=== PATIENT | male | born 1955 | race Caucasian/White ===

== ENCOUNTER 2020-09-22 11:10 | Outpatient (REF) | payer OTHER, SELFPAY ==
--- NOTE | ~2020-09-22 | XR_ITS ---
EXAMINATION: XR KNEE, RIGHT CLINICAL INFORMATION: Pain in right knee COMPARISON: None TECHNIQUE: Four views of the right knee. This includes AP upright view. FINDINGS: No fracture or subluxation. Moderate narrowing of the medial and patellofemoral compartments. Tricompartmental marginal osteophytes. Small joint effusion. Scattered vascular calcifications. XR/XR knee RT 4V IMPRESSION: Moderate tricompartmental degenerative change. Small joint effusion.
== END 2020-09-22 11:11 | disposition home or self-care (01) ==
LOC: HO.XRAY 11:10
PROVIDERS: PCP Internal Medicine Geriatric Medicine; Visit Provider Internal Medicine Geriatric Medicine
DX: M25.561 Pain in right knee (principal)
CPT/HCPCS: 73564

== ENCOUNTER → 2021-04-20 13:44 | Outpatient (BNVA) | payer OTHER, SELFPAY | PROVIDERS: PCP Internal Medicine Geriatric Medicine; Referring Provider Internal Medicine Geriatric Medicine; Visit Provider Internal Medicine | DX: R00.2 Palpitations (principal); I10 Essential (primary) hypertension; E11.8 Type 2 diabetes mellitus with unspecified complications | CPT/HCPCS: 93005; 99202 ==

== ENCOUNTER → 2021-05-22 13:07 | Outpatient (REF) | payer OTHER, SELFPAY ==
--- NOTE | 2021-05-22 13:16 | HM_ITS ---
Conclusion: 1. Patient was monitored for total of 4 days 2. Baseline rhythm is normal sinus rhythm with average heart of 84 beats per minute. 3. No significant pauses or bradycardia noted 4. Five short runs of SVT noted the longest lasting 11 beats with aberrancy. 5. Total of 1874 PACs accounting for 0.38% of PACs accounting for occasional PACs 6. No patient reported events MTDD
== END ==
LOC: HO.CARD 13:07
PROVIDERS: PCP Internal Medicine Geriatric Medicine; Visit Provider Internal Medicine
DX: R00.2 Palpitations (principal)
CPT/HCPCS: 93242

== ENCOUNTER → 2021-06-23 12:52 | Outpatient (BNVA) | payer OTHER, SELFPAY | PROVIDERS: PCP Internal Medicine Geriatric Medicine; Referring Provider Internal Medicine Geriatric Medicine; Visit Provider Nurse Practitioner Family | DX: R00.2 Palpitations (principal); I47.1 Supraventricular tachycardia; I10 Essential (primary) hypertension | CPT/HCPCS: 99212 ==

== ENCOUNTER 2021-09-10 12:03 | Outpatient (REF) | payer OTHER, SELFPAY ==
--- NOTE | ~2021-09-10 | CT_ITS ---
EXAMINATION: CT CHEST SCREENING CLINICAL INFORMATION: Nicotine dependence. Current smoker. Greater than 14-[id number]-hcds history. COMPARISON: Previous chest CT January 2020. TECHNIQUE: Multidetector volumetric CT imaging of the chest is performed without contrast using low dose technique. Additional 2D coronal and sagittal reformatted images and axial 3D maximum intensity projection (MIP) images are generated on the CT workstation. This CT examination was performed using dose optimization techniques as appropriate, variously including the following: *Automated exposure control. *Adjustment of mA and/or kV according to patient size (this includes techniques or standardized protocols for targeted exams where dose is matched to indication/reason for exam; i.e. extremities or head). *Use of iterative reconstruction technique. DLP: 58 mGy-cm FINDINGS: LUNGS: There is evidence of emphysema. There are increased interstitial markings and areas of increased attenuation again suggestive of interstitial lung disease. There are increased markings seen in the medial right lower lobe adjacent to bony osteophyte that are stable. More inferior to this is an area of increased ground-glass attenuation measuring approximately 1 x 2 cm, for example axial image 346 series 5, that is stable. There are smaller scattered areas of increased ground-glass attenuation particularly in the left upper and lower lobes that appear stable. There are new peripheral or subpleural areas of increased ground-glass attenuation in the right lower lobe adjacent to the diaphragm, largest measuring 1.5 cm, for example axial image 369 series 5. There are several solid pulmonary nodules that are stable; largest measures 3 mm in the left lower lobe adjacent to the fissure, axial image 263 series 3. No endobronchial or endotracheal lesion is seen. MEDIASTINUM: There is stable mediastinal lymphadenopathy. Larger lymph nodes are upper normal in size but appear unchanged. The heart does not appear enlarged. There is no coronary artery calcification. The thoracic aorta is normal in caliber. PLEURA: There is no pleural effusion. No pleural mass or thickening. AXILLA: No lymphadenopathy. UPPER ABDOMEN: Unremarkable. OSSEOUS STRUCTURES: There are degenerative changes of the spine. CT/CT lung screening IMPRESSION: Emphysema and interstitial disease. Scattered areas of ground-glass attenuation with new areas in the right lower lobe. Dominant peripheral or subpleural ground-glass attenuation area in the medial right lower lobe appears unchanged. ASSESSMENT: Lung-RADS category 3: Probably Benign. RECOMMENDATION: 6 month low-dose chest CT follow-up recommended.
== END 2021-09-10 12:04 | disposition home or self-care (01) ==
LOC: HO.CT 12:03
PROVIDERS: PCP Internal Medicine Geriatric Medicine; Visit Provider Physician Assistant Medical
DX: Z12.2 Encounter for screening for malignant neoplasm of respiratory organs (principal); Z87.891 Personal history of nicotine dependence
CPT/HCPCS: 71271

== ENCOUNTER → 2021-10-27 13:23 | Outpatient (BNVA) | payer OTHER, SELFPAY | PROVIDERS: PCP Internal Medicine Geriatric Medicine; Referring Provider Internal Medicine Geriatric Medicine; Visit Provider Nurse Practitioner Family | DX: I47.1 Supraventricular tachycardia (principal); I10 Essential (primary) hypertension; R00.2 Palpitations | CPT/HCPCS: 99212 ==

== ENCOUNTER → 2022-04-28 11:27 | Outpatient (BNVA) | payer OTHER, SELFPAY | PROVIDERS: PCP Internal Medicine Geriatric Medicine; Referring Provider Internal Medicine Geriatric Medicine; Visit Provider Internal Medicine | DX: R00.2 Palpitations (principal); I10 Essential (primary) hypertension | CPT/HCPCS: 93005; 99212 ==

== ENCOUNTER → 2022-05-10 13:29 | Outpatient (REF) | payer OTHER, SELFPAY ==
--- NOTE | 2022-05-10 13:34 | CA_ITS ---
Transthoracic Echocardiogram Patient (Last, First, Middle): Iftikhar Wen, Gender: Male Date of : 1955 Age: 66 Procedure Date: 05/10/2022 Procedure Type: Transthoracic Echocardiogram Location: OP Height: 175.26 cm Weight: 99.79 kg BSA: 2.15 m2 Heart Rate: bpm BP: 120 / 82 mmHg Scouts: MINA Referring MD: Isaias Perez MD City Detective: Shabbir Shaw MD Symptoms: I47.1 - Supraventricular tachycardia Study Quality: Technically Difficult/contrast ECG Rhythm: Sinus Conclusions: - 1. Mildly reduced LV systolic function with LVEF of 45-50% with impaired relaxation filling pattern with wall motion abnormality in RCA territory 2. Normal cardiac valvular Doppler 3. Normal RV systolic pressure 4. No gross pericardial effusion Findings Procedure Information Contrast agent, definity, is being given per protocol without apparent complications. Left Ventricle Normal left ventricular cavity size. There is normal left ventricular wall thickness. The left ventricular systolic function is mildly decreased. The visually estimated ejection fraction is between 45-50%. Spectral Doppler is indicative of an impaired relaxation filling pattern. E/E prime ratio is between 8 and 15 consistent with indeterminate filling pressures. Wall Motion Rest Echo Findings The inferoseptal wall, the basal inferior, and mid inferior segments are hypokinetic. All other scored wall segments showed normal motion. Right Ventricle The right ventricle was not well visualized. Atria The left atrium is normal in size. Interatrial shunt cannot be excluded. The right atrium is normal in size. Aortic Valve Normal aortic valve structure and function. There is no aortic valve stenosis. There is no aortic valve regurgitation. Mitral Valve Normal mitral valve structure and function. There is trace mitral valve regurgitation. There is no mitral valve stenosis. Pulmonic Valve The pulmonic valve was not well visualized. Tricuspid Valve Likely normal tricuspid valve structure and function. There is trace tricuspid valve regurgitation. The right ventricular systolic pressure is normal. The right ventricular systolic pressure is 26 mmHg. Normal right atrial pressure. There is no evidence of pulmonary hypertension. Great Vessels All visible segments of the aorta are normal in size. The pulmonary artery was not well visualized. Venous The inferior vena cava is normal in size and collapses greater than 50% with inspiration. Pericardium/Pleural There is no evidence of pericardial effusion. Prior Study Comparison No prior study available for comparison. Measurements 2D Linear Measurements IVSd: 1.03 0.6-0.9/0.6-1.0 cm LVIDd: 4.58 3.9-5.3/4.2-5.9 cm LVIDd Index: 2.13 2.4-3.2/2.2-3.1 cm/m2 LVIDs: 3.14 2.0-3.6 cm LVPWd: 1.05 0.7-1.1 cm LA Diam: 2.50 2.7-3.8/3.0-4.0 cm LAIDs Index: 1.16 1.5-2.3 cm/m2 LV Mass: 207.31 67-162/88-224 g LV Mass Index: 96.42 43-95/49-115 g/m2 LVOT Diam: 2.10 3.0+(-)1.3 cm 2D Systolic Function EF 4C: 45.40 >55% EF 2C: 49.20 >55% EF BiP: 45.90 >55% Mitral Valve MV Pk E: 0.79 MV PK A: 0.83 MV Decel Time: 174.00 E/A: 1.00 E'Lateral: 8.16 E'Medial: 6.96 E/E' Med: 11.40 E/E' Lat: 9.70 PHT: 51.00 MVA PHT: 4.31 Decel Amador: 4.55 Aortic Valve AoV Pk Deandre: 1.32 AoV Mn Deandre: 0.93 AoV VTI: 0.29 AoV Pk Grad: 7.00 Aov Mn Grad: 4.00 ARJUN Cont.VTI: 2.72 LVOT LVOT Pk Deandre: 0.98 LVOT Mn Deandre: 0.67 LVOT VTI: 0.23 LVOT Pk Grad: 4.00 LVOT Mn Grad: 2.00 LVOT Diam: 2.10 LVOT Area: 3.46 Diastolic Function MV Pk E: 0.79 MV Pk A: 0.83 E/A: 1.00 E'Medial: 6.96 E/E' Med: 11.40 E' Laterial: 8.16 E/E' Lat: 9.70 Right Ventricle TAPSE (mm): 20.70 TVS' Deandre: 11.50 Tricuspid Valve TR Pk Deandre: 2.42 TR Pk Grad: 23.00 RA Press: 3.00 RVSP: 26.00 Great Vessels Aorta Sinus of Valsalva: 3.17 2.0-3.[address] [place]: 2.26 1.7-3.4 cm Ao Asc: 3.30 2.1-3.4 cm Updated in Other Vendor System with Status of Final Shabbir Shaw MD electronically signed on 05/11/2022 12:27:38 PM with status of Final
== END ==
LOC: HO.CARD 13:29
PROVIDERS: Visit Provider Internal Medicine
DX: I47.1 Supraventricular tachycardia (principal)
CPT/HCPCS: 93306; Q9957

== ENCOUNTER → 2022-05-27 08:37 | Outpatient (REF) | payer OTHER, SELFPAY ==
--- NOTE | ~2022-05-27 | NM_ITS ---
Exercise Myocardial perfusion study Indication: CAD to evaluate for myocardial ischemia Technique: The patient was brought in for an exercise perfusion study on 05/27/2022. Patient performed exercise as per Edwin protocol and was injected 28 mCi of sestamibi was given intravenously one target HR was achieved. Images were obtained using the SPECT gamma camera interlaced with the gating device. Images were obtained in supine position. Resting perfusion study was performed on 05/27/2022. Patient was administered 8.5 mCi of sestamibi intravenously at rest. Images were then obtained in supine position. Images obtained with and without CT attenuation. Total DLP 78 mGy-cm. Images were processed with the software and compared side to side in short axis, horizontal long axis and vertical long axis views. Findings: The stress perfusion study showed both attenuated as well as non attenuated corrected images show normal uptake of radiotracer in all segments of LV myocardium.. The gated study shows normal LV systolic function with calculated LVEF of 57%. LV cavity is normal in size. The gated study shows normal systolic wall thickening and contraction of all segments. There is no transient ischemic dilation. Resting study shows non attenuated images show normal uptake of radiotracer in all segments of LV myocardium. Gating at rest reveals normal systolic wall motion with ejection fraction at 59%. The findings are consistent with normal myocardial perfusion. NM/NM syd perf SPECT rest & str Impression: 1. Normal myocardial perfusion 2. Gated LVEF is 57% 3. Transient ischemic dilatation not present Stress EKG is negative for ischemia
--- NOTE | 2022-05-27 08:42 | CA_ITS ---
Acquisition Time: 2022-05-27 09:49:41 Total Exercise Time: 00:05:01 Test Indications: ABN ECHO Medications: SEE CHART Protocol: MONTSERRAT Max HR: 157 BPM 101% of Pred: 155 BPM Max BP: 165/072 mmHG Max Work Load: 4.6 METS Exercise stress test with exercise 5 min 1 sec of Montserrat stage 1 (stage held due to reported inability to walk faster), achieving 101% MPHR, with moderate shortness of breath and request to stop, without chest discomfort, with isolated PACs, with normotensive response to exercise, without EKG changes meeting criteria for ischemia. In recovery his breathing normalized. Nuclear images pending. Test reviewed with Dr Guido. Referred By: Isaias Perez Overread By: INOCENTE GARCIA
== END ==
LOC: HO.CARD 08:37
PROVIDERS: Visit Provider Internal Medicine
DX: I25.10 Atherosclerotic heart disease of native coronary artery without angina pectoris (principal)
CPT/HCPCS: 78452; 93017; A9500; J0280; J2785

== ENCOUNTER → 2022-08-25 14:26 | Outpatient (BNVA) | payer OTHER, SELFPAY | PROVIDERS: PCP Internal Medicine Geriatric Medicine; Referring Provider Internal Medicine Geriatric Medicine; Visit Provider Internal Medicine | DX: I25.10 Atherosclerotic heart disease of native coronary artery without angina pectoris (principal); I10 Essential (primary) hypertension; E11.8 Type 2 diabetes mellitus with unspecified complications; F17.210 Nicotine dependence, cigarettes, uncomplicated | CPT/HCPCS: 99212 ==

== ENCOUNTER 2023-06-07 12:56 | Outpatient (RCR) | payer OTHER, SELFPAY | END 2023-06-07 15:00 | disposition home or self-care (01) | LOC: HO.WCC 12:56 | PROVIDERS: PCP Internal Medicine Geriatric Medicine; Visit Provider Physician Assistant | DX: Z09 Encounter for follow-up examination after completed treatment for conditions other than malignant neoplasm (principal) ==

== ENCOUNTER 2023-08-22 10:42 | Outpatient (REF) | payer OTHER, SELFPAY ==
[2023-08-22 11:35] LABS: MANUAL DIFF FLAG NO
[2023-08-22 11:44] LABS: Basophils Absolute Auto 0.1 X10*3/uL (0.0-0.2); Basophils Percent Auto 1.2 % (0-2); Eosinophils Absolute Auto 0.3 X10*3/uL (0.0-0.4); Eosinophils Percent Auto 5.7 % (0-4); Hematocrit 40.2 % (42.0-52.0); Hemoglobin 13.2 g/dl (14.0-18.0); Imm Gran Abs Auto 0.02 X10*3/uL (0.00-0.03); Imm Gran Pct Auto 0.4 % (0.0-0.4); Lymphocytes Absolute Auto 1.9 X10*3/uL (1.2-4.9); Lymphocytes Percent Auto 33.2 % (20-40); Mean Corpuscular HGB Conc 32.8 g/dl (31.0-36.0); Mean Corpuscular Hemoglobin 30.1 pg (27.0-33.0); Mean Corpuscular Volume 91.6 fL (80.0-98.0); Mean Platelet Volume 10.7 fL (9.4-12.4); Monocytes Absolute Auto 0.6 X10*3/uL (0.1-1.2); Monocytes Percent Auto 9.7 % (2-11); Neutrophils Absolute Auto 2.8 x10*3/uL (2.0-8.3); Neutrophils Percent Auto 49.8 % (45-73); Platelet Count 201 X10*3/uL (160-400); Red Blood Count 4.39 X10*6/uL (4.60-5.80); White Blood Count 5.7 X10*3/uL (4.8-10.8)
[2023-08-22 12:08] LABS: Alanine Aminotransferase 15 U/L (0-40); Albumin Level 4.5 g/dL (3.5-5.0); Alkaline Phosphatase 59 U/L (39-117); Anion Gap 16 (12-20); Aspartate Amino Transferase 35 U/L (5-37); Bilirubin Total 0.6 mg/dL (0.0-1.0); Blood Urea Nitrogen 19 mg/dL (9-16); Calcium 9.4 mg/dL (8.4-10.2); Carbon Dioxide 25 mmol/L (22-29); Chloride 100 mmol/L (96-108); Cholesterol 100 mg/dL (<200); Estimated Glomerular Filt Rate 50; Glucose Random 121 mg/dL (60-115); HDL Cholesterol 33 mg/dL (>40); LDL Cholesterol Calculated 47 mg/dL (<100); Sodium 137 mmol/L (135-145); Total Protein 7.5 g/dL (6.5-8.0); Triglycerides 104 mg/dL (<150)
[2023-08-22 12:13] LABS: Creatinine Urine 169.45 mg/dL; Microalbum/Creatinine Ratio Ur 8.8 ug/mg cr (<30)
[2023-08-22 12:22] LABS: Prostate Specific Antigen 0.51 ng/mL (<0.05-4.0); ~HepC Num1 0.08 S/CO (0.00-0.79); ~Hepatitis C Antibody Nonreactive (Nonreactive)
== END 2023-08-22 10:43 | disposition home or self-care (01) ==
LOC: HO.HHCL 10:42
PROVIDERS: Visit Provider Internal Medicine Geriatric Medicine
DX: E11.9 Type 2 diabetes mellitus without complications (principal); E78.00 Pure hypercholesterolemia, unspecified; L21.0 Seborrhea capitis; Z11.59 Encounter for screening for other viral diseases; Z53.20 Procedure and treatment not carried out because of patient's decision for unspecified reasons; Z12.5 Encounter for screening for malignant neoplasm of prostate
CPT/HCPCS: 36415; 80053; 80061; 82043; 82570; 84153; 85025; 86803

== ENCOUNTER 2023-09-19 11:32 | Outpatient (REF) | payer OTHER, SELFPAY ==
[2023-09-19 13:54] LABS: Anion Gap 12 (12-20); Blood Urea Nitrogen 13 mg/dL (9-16); Calcium 9.5 mg/dL (8.4-10.2); Carbon Dioxide 29 mmol/L (22-29); Chloride 104 mmol/L (96-108); Estimated Glomerular Filt Rate > 60; Glucose Random 130 mg/dL (60-115); Potassium 4.3 mmol/L (3.3-5.1); Sodium 141 mmol/L (135-145)
== END 2023-09-19 11:33 | disposition home or self-care (01) ==
LOC: HO.HHCL 11:32
PROVIDERS: Visit Provider Internal Medicine Geriatric Medicine
DX: R79.89 Other specified abnormal findings of blood chemistry (principal)
CPT/HCPCS: 36415; 80048

== ENCOUNTER 2023-11-14 13:48 | Outpatient (REF) | payer OTHER, SELFPAY ==
--- NOTE | ~2023-11-14 | CT_ITS ---
EXAMINATION: CT CHEST SCREENING CLINICAL INFORMATION: Nicotine dependence, cigarettes, uncomplicated. The patient is a current smoker with a 46 pack-year history of smoking. COMPARISON: CT chest 09/10/2021. X-ray chest 04/11/2017. TECHNIQUE: Multidetector volumetric CT imaging of the chest is performed on a Siemens SOMATOM Definition scanner without contrast using low dose technique. Additional 2D coronal and sagittal reformatted images and axial 3D maximum intensity projection (MIP) images are generated on the CT workstation. This CT examination was performed using dose optimization techniques as appropriate, variously including the following: *Automated exposure control. *Adjustment of mA and/or kV according to patient size (this includes techniques or standardized protocols for targeted exams where dose is matched to indication/reason for exam; i.e. extremities or head). *Use of iterative reconstruction technique. DLP: 54 mGy-cm FINDINGS: LUNGS: Emphysematous changes are seen. Bronchial wall thickening is present. Ground-glass changes adjacent to the spine in the right lower lobe persists. There has been some resolution of some larger previously seen ground-glass nodules. For example, on prior 5:64, a 1.7-1.5 cm ground-glass nodule were present which are no longer seen. A 1.9 x 0.8 cm ground-glass density in the left lower lobe is unchanged (5:299 compare prior 5:280). No new or suspicious lung mass is seen. MEDIASTINUM: Prominent mildly enlarged mediastinal lymph nodes are unchanged. CORONARY ARTERY CALCIFICATION: None visualized on this study. PLEURA: There is no pleural effusion. No pleural mass or thickening. AXILLA: No lymphadenopathy. UPPER ABDOMEN: Unremarkable. OSSEOUS STRUCTURES: Degenerative changes are present in the spine. CT/CT lung screening IMPRESSION: No concerning pulmonary nodule is seen. There has been some resolution of ground-glass disease seen previously. ASSESSMENT: Lung-RADS category 2: Benign. RECOMMENDATION: Routine annual low-dose CT screening in 12 months.
== END 2023-11-14 13:49 | disposition home or self-care (01) ==
LOC: HO.CT 13:48
PROVIDERS: PCP Internal Medicine Geriatric Medicine; Visit Provider Nurse Practitioner Family
DX: Z12.2 Encounter for screening for malignant neoplasm of respiratory organs (principal); F17.210 Nicotine dependence, cigarettes, uncomplicated
CPT/HCPCS: 71271

== ENCOUNTER 2024-09-12 10:47 | Outpatient (REF) | payer OTHER, SELFPAY ==
--- NOTE | ~2024-09-12 | XR_ITS ---
EXAMINATION: XR CHEST 2 VIEWS HISTORY: sinus tachycardia, ?cardiomegaly COMPARISON: Comparison is made with the prior examination dated 04/11/2017. FINDINGS: PA and lateral views of the chest are submitted. The lungs are expanded and clear. There is no pleural effusion, pneumothorax, or pulmonary vascular congestion. The heart is normal in size. There is degenerative disc disease of the spine. XR/XR chest 2V IMPRESSION: No acute cardiopulmonary abnormality. Electronically signed by: Iron Cook MD 09/12/2024 11:02 AM MARIELLA
--- OUTSIDE RECORDS SUMMARY | 2024-09-12 13:24 | XMS_ITS | Encounter Summary ---
Author Organization [facility] Address [address] [place] [address] [address] [place] [address] Care Team Providers Care Master Sonar Technician Name Role Phone Name, Nick BOWENS Primary Care Provider [phone] Reason for Visit * Reason Comments Med Refill Encounter Details Date Type Department Care Team (Late st Contact Info) Description 04/15/2023 Refill [facility] [address] [place] [address] [phone] Edwin Ocasio AGNP Type 2 diabetes mellitus without complication, without long-term current use of insulin (CMS/HCC) Social History Tobacco Use Types Packs/Day Years Used Date Smoking Tobacco: Every Day Cigarettes Smokeless Tobacco: Never Depression Answer Date Recorded Patient Health Questionnaire-2 Score 0 07/21/2022 Sex and Gender Information Value Date Recorded Sex Assigned at Male 05/17/2022 10:18 AM EDT Legal Sex Male 10:18 AM EDT Gender Identity Male 05/17/2022 10:18 AM EDT Sexual Orientation Straight 05/17/2022 10 :18 AM EDT documented as of this encounter Plan of Treatment Upcoming Encounters Date Type Department Care Team (Late st Contact Info) Description 12/14/2024 10:00 AM EDT Office Visit [facility] [address] [place] [address] [id number] Name, MD Nick [address] [place] [phone] documented as of this encounter Visit Diagnoses Diagnosis Type 2 diabetes mellitus without complication, without long-term current use of insulin (CMS/HCC) documented in this encounter Care Teams Master Sonar Technician Relationship Specialty Start Date End Date Name, MD Nick [address] [place] [id number] PCP - General Family Medicine 10/14/15 documented as of this encounter
--- OUTSIDE RECORDS SUMMARY | 2024-09-12 13:24 | XMS_ITS | Clinical Summary ---
Author Organization [employer] Address [address] [facility] [address] [place] [address] Care Team Providers Care Research Recruiter Name Role Phone Name, Nick BOWENS Primary Care Provider [phone] Allergies Active Allergy Reactions Criticality Noted Date Comments Aspirin 08/12/2015 Citric Acid 08/12/2015 Haloperidol 08/12/2015 Sodium Bicarbonate 08/12/2015 Medications zolpidem CR (Ambien CR) 12.5 MG ER tablet Take 1 tablet by mouth if needed at bedtime. Active OLANZapine (ZyPREXA) 20 MG tablet Take 1 tablet by mouth at bedtime. Active prazosin (Minipress) 2 MG capsule Take 1 capsule by mouth at bed time. Take with 5 mg capsule (TDD = 7 mg) Active prazosin (Minipress) 5 MG capsule Take 1 capsule by mouth at bedtime. Take with 2 mg capsule (TDD = 7 mg). Active sertraline (Zoloft) 100 MG tablet Take 2 tablets by mouth in the morning. 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 4 each 5 024 Active ketoconazole (NIZOral) 2 % shampoo APPLY TOPICALLY TO AFFECTED AREA(S) TWICE A WEEK 120 mL 2 024 Active acetaminophen (Tylenol Extra Strength) 500 MG tablet Take 1 tablet (500 mg) by mouth every 8 (eight) hours if needed for moderate pain. 90 tablet 11 024 2024 Active clotrimazole (Lotrimin) 1 % cream APPLY TO FEET AND TOES TWICE DAILY 60 g 2 024 Active atorvastatin (Lipitor) 40 MG tablet TAKE 1 TABLET BY MOUTH AT BEDTIME 90 tablet 1 024 Active omeprazole (PriLOSEC) [address] capsule TAKE 1 CAPSULE BY MOUTH EVERY EVENING 90 capsule 1 024 Active lisinopril 10 MG tablet TAKE 1 TABLET BY MOUTH EVERY MORNING 90 tablet 1 024 Active Aspirin Low Dose 81 MG EC tablet TAKE 1 TABLET BY MOUTH EVERY EVENING 90 tablet 1 024 Active senna (Senokot) 8.6 MG tabletIndicatio ns:Constipation , unspecified constipation type TAKE 2 TABLETS BY MOUTH EVERY DAY AT BEDTIME 180 tablet 1 024 Active metFORMIN (Glucophage) 850 MG tablet TAKE 1 TABLET BY MOUTH TWICE DAILY IN THE MORNING AND IN THE EVENING WITH FOOD 180 tablet 025 Active Trulicity 1.5 MG/0.5ML solution auto-injectorIn dications:Type 2 diabetes mellitus with other specified complication, unspecified whether retirement insulin use ([facility]) INJECT ONE PEN (=1.5MG) SUBCUTANEOUSLY ONCE A WEEK DIRECTED 2 mL 5 025 Active naproxen (Naprosyn) 500 MG tabletIndicatio ns:Type 2 diabetes mellitus without complication, without long-term current use of insulin ([facility]) TAKE 1 TABLET BY MOUTH TWICE DAILY IN THE MORNING AND IN THE EVENING WITH FOOD NEEDED FOR PAIN 60 tablet 1 025 Active Trulicity 1.5 MG/0.5ML solution pen-injectorInd ications:Type 2 diabetes mellitus with other specified complication, unspecified whether retirement insulin use ([facility]) INJECT ONE PEN (=1.5MG) SUBCUTANEOUSLY ONCE A WEEK DIRECTED 2 mL 5 024 2024 Discontinued naproxen (Naprosyn) 500 MG tabletIndicatio ns:Type 2 diabetes mellitus without complication, without long-term current use of insulin ([facility]) TAKE 1 TABLET BY MOUTH TWICE DAILY IN THE MORNING AND IN THE EVENING WITH FOOD NEEDED FOR PAIN 60 tablet 1 024 2024 Discontinued Active Problems Problem Noted Date Diagnosed Date History of psychosis 09/12/2024 Tobacco user 07/15/2022 Prostatism 12/20/2017 Chronic obstructive lung disease 04/08/2017 Type 2 diabetes mellitus 02/23/2016 Pure hypercholesterolemia 12/20/2011 Essential hypertension 12/20/2011 Depressive disorder 12/20/2011 Anxiety state 12/20/2011 Resolved Problems Problem Noted Date Diagnosed Date Resolved Date Occult blood in stools 07/15/202209/12 Encounters Date Type Department Care Team Description 09/12/2024 10:00 AM EST Office Visit [facility] [address] [place] [address] Nick Johnson MD Tachycardia (Primary Dx); Type 2 diabetes mellitus without complication, without long-term current use of insulin ([facility]) 09/12/2024 Refill [facility] [address], [place] [phone] Nick Johnson MD Type 2 diabetes mellitus without complication, without long-term current use of insulin ([facility]) 09/04/2024 Refill [facility] [address], [place] [phone] Nick Johnson MD Type 2 diabetes mellitus with other specified complication, 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 ([facility]) 08/31/2024 Patient Outreach [facility] [address], [place] [phone] Nick Johnson MD Pre-visit Planning (Pre-visit planning - LVM ) 07/31/2024 Refill [facility] [address], [place] [phone] Nick Johnson MD 07/10/2024 Refill [facility] [address], [place] [phone] Nick Johnson MD Constipation, unspecified constipation type from Last 3 Months Immunizations Name Administration Dates Next Due Hep B, adult 09/15/2007,08/03/2007 Influenza Injectable Quadriv alant Preservative Free IIV4 MDCK 06/25/2020 Influenza injectable quadriv alent IIV4 with preservative 07/21/2022,05/26/2018,04/08/2017,05/25,04/10/2015 Influenza injectable quadriv alent preservative free 08/19/2023,05/27/2021,04/06/2019 Influenza, IIV3, injectable 04/15/2014, 1 Influenza, Split (incl. sylvain fied surface antigen) 04/23/2013,07/04/2012 Pfizer Covid-19 Vaccine 12+ rebecca-sucrose (Pérez Cap) 12/04/2021 Pneumococcal Conjugate PCV 20 08/19/2023 Pneumococcal Polysaccharide PPSV23 04/07/2006 TD (adult), 2 Lf tetanus tox oid, preservative free, adsorbed 02/10/2006 Tdap 05/25/2016 Zoster, Recombinant 01/06/2022,10/30/2021 Social History Tobacco Use Types Packs/Day Years Used Date Smoking Tobacco: Former Cigarettes Q uit: 06/2023 Smokeless Tobacco: Current Tobacco Cessation:Ready to Q uit: Not Asked; Counseling Given: Not Answered Comments:vaping Alcohol Use Standard Drinks/Week Comments Never 0 (1 standard drink = 0.6 oz pur e alcohol) Depression Answer Date Recorded Patient Health Questionnaire-9 Score 8 09/12/2024 Patient Health Questionnaire-9 Score 8 09/12/2024 Last PHQ-9: Questionnaire Data Not on file 0 09/12/2024 Housing Stability Answer Date Recorded What is your housing situation today? I have al ponce 09/12/[address] you li ve. Do you have problems with any of the following? None of the above 09/12/2024 Food Insecurity Answer Date Recorded Within the past 12 months, y ou worried that your food would run out before you got money to buy more: Sometimes True 2024 Within the past 12 months,th e food you bought just didn't last and you didn't have enough money to get more: Often true 09/12/2024 Transportation Answer Date Recorded In the past 12 months, has l ack of transportation kept you from medical appts, meetings, work or from getting things needed for daily living? No 09/12/2024 Utilities Answer Date Recorded In the past 12 months, has t he electric, gas, oil or water company threatened to shut off services in your home? No 09/12/2024 Depression Answer Date Recorded Patient Health Questionnaire-2 Score 0 09/12/2024 Internet Access Answer Date Recorded Internet Access Q1 Yes 09/12/2024 Internet Access Q2 Not on file 09/12/2024 Sex and Gender Information Value Date Recorded Sex Assigned at Male 05/17/2022 10:18 AM EDT Legal Sex Male 10:18 AM EDT Gender Identity Male 05/17/2022 10:18 AM EDT Sexual Orientation Straight 05/17/2022 10 :18 AM EDT Last Filed Vital Signs Vital Sign Reading Time Taken Comments Blood Pressure 111/65 09/12/2024 10:10 AM EST Pulse 127 09/12/2024 10:10 AM EST Temperature 35.9 ??C (96.6 ??F) 09/12/2024 10:[address] Respiratory Rate 20 09/12/2024 10:10 AM EST Oxygen Saturation 97% 09/12/2024 10:10 AM EST Inhaled Oxygen Concentration - - Weight 85.7 kg (189 lb) 09/12/2024 10:10 AM EST Height 175.3 cm (5' 9 ) 09/12/2024 10:10 AM EST Body Mass Index 27.91 09/12/2024 10:10 AM EST Plan of Treatment Upcoming Encounters Date Type Department Care Team (Late st Contact Info) Description 12/14/2024 10:00 AM EDT Office Visit [facility] [address] [place] [address] Name, MD Nick [address] [place] [address] Health Maintenance Due Date Last Done Comments CT Colonography 1955 Colonoscopy 1955 FIT 1955 FOBT 1955 Sigmoidoscopy 1955 Eye Exam 1966 Hepatitis B Vaccines (3 of 3 - 19+ 3-dose series) 02/01/2008 09/15/2007, 08/03/2007 RSV Patients and Patients Aged 60 years or older (1 - Risk 60-74 years 1-dose series) 2016 COVID-19 Vaccine ( season) 2024 12/04/2021, 05/27/2021, 10/08/2020, Additional history exists Influenza Vaccine (#1) 2024 , 07/21/2022, 05/27/2021, Additional history exists Diabetes: Foot Exam 08/19/2024 08/19/2023, 08/19/2023, 08/19/2023, Additional history exists Diabetes: Urine Protein Screening 08/22/2024 08/22/2023, 09/02/2022, 12/07/2021 Lipid Panel 08/22/2024 08/22/2023, 08/18, 12/07/2021 Diabetes: Hemoglobin A1C 03/12/2025 025, 08/19/2023, 07/21/2022 Alcohol/Substance Use Screening 09/12/2025 09/12/2024 Depression Screening 09/12/2025 09/12/2024, 09/12/19 25 SDOH Screening 09/12/2025 09/12/2024 Tobacco Screening 09/12/2025 09/12/2024 DTaP/Tdap/Td Vaccines (2 - Td or Tdap) 05/25/2026 05/25/2016, 02/10/2006 Colorectal Cancer Screening 09/12/2026 FIT DNA/Cologuard 09/12/2026 09/12/2023 Zoster Vaccines Completed 01/06/2022, 10/30/2021 Pneumococcal Vaccine: 50+ Years Completed 08/19/2023, 04/07/2006 Hepatitis C Screening Completed 08/22/2023 HIB Vaccines Aged Out No longer eligi ble based on patient's age to complete this topic HPV Vaccines Aged Out No longer eligi ble based on patient's age to complete this topic Hepatitis A Vaccines Aged Out No long er eligible based on patient's age to complete this topic IPV Vaccines Aged Out No longer eligi ble based on patient's age to complete this topic Meningococcal Vaccine Aged Out No jocelynn jorge eligible based on patient's age to complete this topic RSV under 20 months Aged Out No longe r eligible based on patient's age to complete this topic Rotavirus Vaccines Aged Out No longer eligible based on patient's age to complete this topic Procedures Procedure Name Priority Date/Time Associated Diagnosis Comments XR CHEST 2 VIEWS Routine 09/12/2024 10:4 7 AM EST Tachycardia ECG 12-LEAD Routine 09/12/2024 10:36 AM EST Tachycardia POCT GLYCATED HEMOGLOBIN, TOTAL Routine 09/12/2024 10:12 AM EST Type 2 diabetes mellitus without complication, without long-term current use of insulin (CMS/HCC) POCT GLUCOSE Routine 09/12/2024 10:11 AM EST Type 2 diabetes mellitus without complication, without long-term current use of insulin (CMS/HCC) LAB COLOGUARD?? COLON CANCER SCREEN Routine 09/12/2023 4:00 PM EST Screen for colon cancer HEPATITIS C AB W/REFL TO HCV RNA, QN, PCR Routine 08/22/2023 10:46 AM EST Need for hepatitis C screening test ALBUMIN, RANDOM URINE W/CREATININE Routine 08/22/2023 10:46 AM EST Type 2 diabetes mellitus without complication, without long-term current use of insulin (CMS/HCC) Pure hypercholesterolemi a Colonoscopy refused Screening for prostate cancer Dandruff in adult LIPID PANEL, STANDARD Routine 08/22/2023 10:46 AM EST Type 2 diabetes mellitus without complication, without long-term current use of insulin (CMS/HCC) Pure hypercholesterolemi a Colonoscopy refused Screening for prostate cancer Dandruff in adult from Last 3 Months or Most Recently Relevant to Health Maintenance Results * XR Chest 2 Views (09/12/2024 10:47 AM EST) Anatomical Region Laterality Modality Chest Radiographic Mariann ging 09/12/2024 10:4 7 AM EST Narrative 09/12/2024 11:05 AM EST ?[facility] ?[address] ?[place] [address] ?XRay Report ? Signed ? Patient: Wen,Iftikhar ?MR#: [id number] ?? [id number] ? : 1955 ?Acct:[id number] ? Age/Sex: 68 / M ?ADM Date: 09/12/24 ? Loc: HO.HHCX ? Attending Dr: Nick Johnson MD ? Ordering Physician: Nick Johnson MD ?? Date of Service: 09/12/24 ?? Procedure(s): XR chest 2V ?? Accession Number(s): [id number] ? cc: Nick Johnson MD ? EXAMINATION: ??XR CHEST 2 VIEWS ? HISTORY: sinus tachycardia, ?cardiomegaly ? COMPARISON: Comparison is made with the prior examination dated ?? 04/11/2017. ? FINDINGS: ??PA and lateral views of the chest are submitted. The lungs ?? are expanded and clear. ??There is no pleural effusion, pneumothorax, or ?? pulmonary vascular congestion. ??The heart is normal in size. ??There is ?? degenerative disc disease of the spine. ? XR/XR chest 2V ?? IMPRESSION: ?? No acute cardiopulmonary abnormality. ? Electronically signed by: ??Iron Cook MD ??09/12/2024 11:02 AM EST ?? RP ? Dictated By: ?Iron Cook MD ? Signed By: ?<Electronically signed by Iron Cook MD in OV> ?09/12/24 1102 ? DD/ 1047 ? TD/TT: 09/12/24 1055 ? Business Administration Program Chair: ? Procedure Note Alla, Image - 09/12/[address] [address] XRay Report Signed Patient: Iftikhar WenMR#: [id number] : 7Acct:[id number] Age/Sex: 68 / MADM Date: 09/12/24 Loc: .HHCX Attending Dr: Nick Johnson MD Ordering Physician: Nick Johnson MD Date of Service: 09/12/24 Procedure(s): XR chest 2V Accession Number(s): [id number] cc: NameNick MD EXAMINATION: XR CHEST 2 VIEWS HISTORY: sinus tachycardia, ?cardiomegaly COMPARISON: Comparison is made with the prior examination dated 04/11/2017. FINDINGS: PA and lateral views of the chest are submitted. The lungs are expanded and clear. There is no pleural effusion, pneumothorax, or pulmonary vascular congestion. The heart is normal in size. There is degenerative disc disease of the spine. XR/XR chest 2V IMPRESSION: No acute cardiopulmonary abnormality. Electronically signed by: Iron Cook MD 09/12/2024 11:02 AM EST RP Dictated By: Iron Cook MD Signed By: <Electronically signed by Iron Cook MD in OV> 09/12/24 1102 DD/ 1047 TD/TT: 09/12/24 1055 Business Administration Program Chair: us Nick Johnsno MD IMG XR PROCEDURES Final Result * ECG 12 lead (09/12/2024 10:36 AM EST) Narrative Name, MD Nick - 09/12/2024 10:36 AM EST Sinus tachycardia. ??Heart rate of 105. ??No other abnormality. us Nick Johnson MD ECG ORDERABLES Final Result * POCT HGB A1C (09/12/2024 10:12 AM EST) Hemoglobin A1C 5.3 4.0 - 6.0 % QC Media Lot # [id number] Lot# Expiration Date , Blood 09/12/2024 10:1 2 AM EST us Nick Johnson MD POINT OF CARE TEST ENTER/EDIT OR DERABLES Final Result * POCT Glucose (09/12/2024 10:11 AM EST) Glucose Blood, POC 159 60 - 200 mg/dL QC Media Lot # [id number] Lot# Expiration Date , Blood Capillary blood specimen / Unknown 09/12/2024 10:11 AM EST us Nick Name POINT OF CARE TEST ENTER/EDIT OR DERABLES Final Result * Cologuard?? colon cancer screening (09/12/2023 4:00 PM EST) Cologuard Result Negative Negative 09/21/19 1:01 PM EST [email or web address] (CLIA #:[id number]) Comment: NEGATIVE TEST RESULT. A negative Cologuard result indicates a low likelihood that a colorectal cancer (CRC) or advanced adenoma (adenomatous polyps with more advanced pre-malignant features) ??is present. The chance that a person with a negative Cologuard test has a colorectal cancer is less than 1 in 1500 (negative predictive value >99.9%) or has an ??advanced adenoma is less than ??5.3% (negative predictive value 94.7%). These data are based on a prospective cross-sectional study of 10,000 individuals at average risk for colorectal cancer who were screened with both Cologuard and colonoscopy. (Charly Alvarenga et al, N Engl J Med 2014;370(14):1286- 1297) The normal value (reference range) for this assay is negative. COLOGUARD RE-SCREENING RECOMMENDATION: Periodic colorectal cancer screening is an important part of preventive healthcare for asymptomatic individuals at average risk for colorectal cancer. ??Following a negative Cologuard result, the [place] [employer] and U.S. Multi-Society Task Force screening guidelines recommend a Cologuard re-screening interval of 3 years. References: [place] Guideline for Colorectal Cancer Screening: https://www.cancer.org/cancer/kixhz-vhysov-unxacw/zoqaubpxi-nhlvlmard-hoursjn/ac s-rec ommendations.html.; Glenn DK, Shreya CR, Sierra RichardsonK, Colorectal Cancer Screening: Recommendations for Physicians and Patients from the U.S. Multi-Society Task Force on Colorectal Cancer Screening , Am J Gastroenterology 2017; 112:7551-1555. TEST DESCRIPTION: Composite algorithmic analysis of stool DNA-biomarkers with hemoglobin immunoassay. ?? Quantitative values of individual biomarkers are not reportable and are not associated with individual biomarker result reference ranges. Cologuard is intended for colorectal cancer screening of adults of either sex, 45 years or older, who are at average-risk for colorectal cancer (CRC). Cologuard has been approved for use by the U.S. FDA. The performance of Cologuard was established in a cross sectional study of average-risk adults aged 50-84. Cologuard performance in patients ages 45 to 49 years was estimated by sub-group analysis of near-age groups. Colonoscopies performed for a positive result may find as the most clinically significant lesion: colorectal cancer [4.0%], advanced adenoma (including sessile serrated polyps greater than or equal to 1cm diameter) [20%] or non- advanced adenoma [31%]; or no colorectal neoplasia [45%]. These estimates are derived from a prospective cross-sectional screening study of 10,000 individuals at average risk for colorectal cancer who were screened with both Cologuard and colonoscopy. (Charly Alvarenga et al, N Engl J Med 2014;370(14):7502-1176.) Cologuard may produce a false negative or false positive result (no colorectal cancer or precancerous polyp present at colonoscopy follow up). A negative Cologuard test result does not guarantee the absence of CRC or advanced adenoma (pre-cancer). The current Cologuard screening interval is every 3 years. ([employer] [employer] and U.S. Multi-Society Task Force). Cologuard performance data in a 10,000 patient pivotal study using colonoscopy as the reference method can be accessed at the following location: www.[employer]/results. Additional description of the Cologuard test process, warnings and precautions can be found at www.[employer].com. Stool specimen (specimen) Rectal contents / Unknown 09/12/2023 4:00 PM EST 09/14/2023 11:13 AM EST us Nick Johnson MD LAB MOLECULAR DIAGNOSTICS JERI SMITH Final Result [email or web address] (CLIA #:[id number]) [address] [place] [address], * Albumin, Random Urine W/Creatinine (08/22/2023 10:46 AM EST) Creatinine, Urine 169.45 mg/dL [facility] Microalbumin Urine 15.0 mg/L [facility] Microalbum Creatinine Ratio Ur 8.8 <30 ug/mg cr [facility] Comment:Albumin/Creatinine R atio Reference Ranges: Normal: < 30 ug/mg creatinine Microalbuminuria: 30 - 300 ug/mg creatinineClinical Albuminuria: > 300 ug/mg creatinine Urine (Urine, Random) 08/22/2023 10:46 AM EST 08/22/2023 11:22 AM EST us Nick Johnson MD LAB URINE ORDERABLES Final Resul t Performing Organization Address [facility] Co de Phone Number [facility] [address] [place] [phone] * Hepatitis C Antibody with Reflex to HCV, RNA, Quantitative, Real-Time PCR (08/22/2023 10:46 AM EST) Hepatitis C Antibody Nonreactive Nonreactive [facility] Comment:Antibodies to HCV no t detected; does not exclude early acuteHCV infection. Blood Venous blood specimen / Unknown 08/22/2023 10:46 AM EST 08/22/2023 11:23 AM EST us Nick Johnson MD LAB BLOOD ORDERABLES Final Resul t Performing Organization Address City/[facility] Co de Phone Number [facility] [address] [place] [phone] * (ABNORMAL) Lipid Panel, Standard (08/22/2023 10:46 AM EST) Triglycerides 104 <150 mg/dL [facility] Comment:Desirable Triglyceri de: less than 150 mg/dLBorderline High Triglyceride 150-199 mg/dLHigh Triglyceride: 200-499 mg/dLVery High Triglyceride: greater than or equal to 5OO mg/dL Cholesterol 100 <200 mg/dL [facility] Comment:Desirable Cholestero l: less than 200 mg/dLBorderline High Cholesterol: 200-239 mg/dLHigh Cholesterol: greater than 239 mg/dL LDL Cholesterol Calculated 47 <100 mg/dL [facility] Comment:Desirable LDL: less than 100 mg/dLNear Optimal/Above Optimal LDL: 110- 129 mg/dLBorderline High LDL: 130-159 mg/dLHigh LDL: 160-189 mg/dLVery High LDL: greater than or equal to 190 mg/dL HDL Cholesterol 33(L) >40 mg/dL [facility] Comment:Desirable HDL: great er than 40 mg/dL Note: This HDL assay may give artificially low results in patients with liver disease. Blood Venous blood specimen / Unknown 08/22/2023 10:46 AM EST 08/22/2023 11:23 AM EST us Nick Name LAB BLOOD ORDERABLES Final Resul t Performing Organization Address City/State/[facility] Co de Phone Number [facility] [address] [place] [address] [phone] from Last 3 Months or Most Recently Relevant to Health Maintenance Insurance MEDICARE Care Teams Research Recruiter Relationship Specialty Start Date End Date Name, MD Nick [address] [place] [phone] PCP - General Family Medicine 10/14/15
--- OUTSIDE RECORDS SUMMARY | 2024-09-12 13:24 | XMS_ITS | Encounter Summary ---
Author Organization [employer] Address [address] [facility] 7t [place] [address] Care Team Providers Care Electrical Designer Drafter Name Role Phone Name, Nick BOWENS Primary Care Provider [phone] Reason for Visit * Reason Comments Med Refill Encounter Details Date Type Department Care Team ([facility] st Contact Info) Description 08/18/[address] [facility] MEDICINE [address] [place], [place] [phone] Name, MD Nick [address] [place], [place] [phone] Constipation, unspecified constipation type Social History Tobacco Use Types Packs/Day Years Used Date Smoking Tobacco: Every Day Cigarettes Smokeless Tobacco: Never Depression Answer Date Recorded Patient Health Questionnaire-9 Score 0 08/19/2023 Patient Health Questionnaire-9 Score 0 08/19/2023 Last PHQ-9: Questionnaire Data Not on file 0 08/19/2023 Housing Stability Answer Date Recorded What is your housing situation today? I have alheber ponce 08/11/[address] you li ve. Do you have problems with any of the following? None of the above 08/11/2023 Food Insecurity Answer Date Recorded Within the past 12 months, y ou worried that your food would run out before you got money to buy more: Never True 08/11/2023 Within the past 12 months,th e food you bought just didn't last and you didn't have enough money to get more: Never True Transportation Answer Date Recorded In the past 12 months, has l ack of transportation kept you from medical appts, meetings, work or from getting things needed for daily living? No 08/11/2023 Utilities Answer Date Recorded In the past 12 months, has t he electric, gas, oil or water company threatened to shut off services in your home? No 08/11/2023 Depression Answer Date Recorded Patient Health Questionnaire-2 Score 0 08/19/2023 Sex and Gender Information Value Date Recorded Sex Assigned at Male 05/17/2022 10:18 AM EDT Legal Sex Male 10:18 AM EDT Gender Identity Male 05/17/2022 10:18 AM EDT Sexual Orientation Straight 05/17/2022 10 :18 AM EDT documented as of this encounter Plan of Treatment Upcoming Encounters Date Type Department Care Team (Late st Contact Info) Description 12/14/2024 10:00 AM EDT Office Visit [facility] MEDICINE [address] [place] [phone] NameNick MD [address] [place] [address] documented as of this encounter Visit Diagnoses Diagnosis Constipation, unspecified constipation type documented in this encounter Care Teams Electrical Designer Drafter Relationship Specialty Start Date End Date Nick Johnson MD [address] [place] [id number] PCP - General Family Medicine 10/14/15 documented as of this encounter
--- OUTSIDE RECORDS SUMMARY | 2024-09-12 13:24 | XMS_ITS | Encounter Summary ---
Author Organization [employer] Address 75 [facility] 7t [place] [address] Care Team Providers Care Cost Recovery Technician Name Role Phone Name, Nick BOWENS Primary Care Provider [phone] Reason for Visit * Reason Comments Med Refill Encounter Details Date Type Department Care Team ([facility] st Contact Info) Description 09/04/2024 Refill [facility] MEDICINE [address] [place], [place] [phone] Name, MD Nick [address] [place], [place] [phone] Type 2 diabetes mellitus with other specified complication, unspecified whether intermission coordinator insulin use ([facility]) Social History Tobacco Use Types Packs/Day Years Used Date Smoking Tobacco: Former Cigarettes Q uit: 06/2023 Smokeless Tobacco: Current Comments:vaping Alcohol Use Standard Drinks/Week Comments Never 0 (1 standard drink = 0.6 oz pur e alcohol) Depression Answer Date Recorded Patient Health Questionnaire-9 Score 0 08/19/2023 Patient Health Questionnaire-9 Score 0 08/19/2023 Last PHQ-9: Questionnaire Data Not on file 0 08/19/2023 Housing Stability Answer Date Recorded What is your housing situation today? I have al ponce 08/11/[address] you [...] Description 12/14/2024 10:00 AM EDT Office Visit [facility] MEDICINE [address] [place] [address] Name, MD Nick [address] [place] [phone] documented as of this encounter Visit Diagnoses Diagnosis Type 2 diabetes mellitus with other specified complication, unspecified whether intermission coordinator insulin use ([facility]) documented in this encounter Additional Health Concerns Assessment Noted Time PHQ-9 Depression Total Score: 0 08/19/19 24 10:24 AM EST documented as of this encounter Care Teams Cost Recovery Technician Relationship Specialty Start Date End Date NameNick MD [address] [place] [id number] PCP - General Family Medicine 10/14/15 documented as of this encounter
--- OUTSIDE RECORDS SUMMARY | 2024-09-12 13:24 | XMS_ITS | Encounter Summary ---
Author Organization [employer] Address 75 [facility] 7t [place] [address] Care Team Providers Care Cathode Maker Name Role Phone Name, Nick BOWENS Primary Care Provider [phone] Reason for Visit * Reason Comments Med Refill Encounter Details Date Type Department Care Team ([facility] st Contact Info) Description 09/12/2024 Refill [facility] [address] [place], [place] [phone] Name, MD Nick [address] [place], [place] [phone] Type 2 diabetes mellitus without complication, without long-term current use of insulin ([facility]) Social History Tobacco Use Types Packs/Day Years [...] Description 12/14/2024 10:00 AM EDT Office Visit [facility] MEDICINE [address] [place] [phone] NameNick MD [address] [place] [address] documented as of this encounter Visit Diagnoses Diagnosis Type 2 diabetes mellitus without complication, without long-term current use of insulin ([facility]) documented in this encounter Additional Health Concerns Assessment Noted Time PHQ-9 Depression Total Score: 8 09/12/19 25 10:13 AM EST documented as of this encounter Care Teams Cathode Maker Relationship Specialty Start Date End Date Nick Johnson MD [address] [place] [address] PCP - General Family Medicine 10/14/15 documented as of this encounter
--- OUTSIDE RECORDS SUMMARY | 2024-09-12 13:24 | XMS_ITS | Encounter Summary ---
Author Organization [employer] Address 75 [facility] 7t [place] [address] Care Team Providers Care Naturopathic Doctor Name Role Phone Name, Nick BOWENS Primary Care Provider [phone] Reason for Visit * Reason Comments Pre-visit Planning Pre-visit planning - LVM Encounter Details Date Type Department Care Team ([facility] st Contact Info) Description 08/31/2024 Patient Outreach [facility] MEDICINE [address] [place] [address] [phone] Name, MD Nick [address] [place] [address] Pre-visit Planning (Pre-visit planning - LVM ) Social History Tobacco Use Types Packs/Day Years [...] AM EDT documented as of this encounter Progress Notes * Felisha Hodges - 08/31/2024 8:56 AM EST ZARINA Lee placed outbound call to patient to complete pre-visit planning. No answer at this time. Patient name and were not confirmed. CC left voicemail requesting return call. Direct contact information provided. documented in this encounter Plan of Treatment Upcoming Encounters Date Type Department Care Team (Late st Contact Info) Description 12/14/2024 10:00 AM EDT Office Visit [facility] MEDICINE [address] [place] [address] NameNick MD [address] [place] [address] documented as of this encounter Visit Diagnoses Not on filedocumented in this encounter Additional Health Concerns Assessment Noted Time PHQ-9 Depression Total Score: 0 08/19/19 24 10:24 AM EST documented as of this encounter Care Teams Naturopathic Doctor Relationship Specialty Start Date End Date NameNick MD [address] [place] [id number] PCP - General Family Medicine 10/14/15 documented as of this encounter
--- OUTSIDE RECORDS SUMMARY | 2024-09-12 13:24 | XMS_ITS | Continuity of Care Document ---
Author Organization [facility] Address [address] [place] [address] Phone Care Team Providers Care Patient Support Partner Name Role Phone Amalia Miller RN Unavailable Unavailable Allergies, Adverse Reactions, Alerts Substance Reaction Status Criticality No Known Allergies Active No Inform ation Medications Medication Instructions Dosage Effective Dates (start - stop) Status Comments prazosin 1 mg capsule TAKE ONE CAP, PO, QHS - Active Zyprexa 20 mg tablet take 1 tablet by oral route every day 20 MG - Active Valium 10 mg tablet TAKE ONE TAB, PO, QHS, PRN FOR SLEEP as needed - Active separate bottle trazodone 50 mg tablet take 1 tablet by oral route every day at bedtime as needed for Sleep 50 MG - Active separate bottle sertraline 100 mg tablet take 2 tablet by oral route every day 200 MG - Active Ambien CR 12.5 mg tablet,extended release take 1 tablet by oral route every day at bedtime as needed for Sleep 12.5 MG - Active do not put in bubble wrap, separate bottle. metformin 1,000 mg tablet take 1 tablet by oral route 2 times every day with morning and evening meals 1000 MG - Active oxybutynin chloride ER 15 mg tablet,extended release 24 hr take 1 tablet by oral route every day 15 MG - Active aspirin 81 mg tablet,delayed release take 1 tablet by oral route every day 81 MG - Active senna 8.6 mg capsule take 2 capsule by oral route every day at bedtime - Active atorvastatin 40 mg tablet take 1 tablet by oral route every day 40 MG - Active naproxen 500 mg tablet take 1 tablet by oral route 2 times every day with food as needed for back pain 500 MG - Active omeprazole 20 mg capsule,delayed release take 1 capsule by oral route every day 30 minutes to 1 hour before a meal 20 MG - Active Advance Directives Directive Yes / No Effective Date File Name No Information Encounters Encounter Description Practice Location Reason(s) For Visit Diagnoses Date Provider [facility], [address] [place] [address], [facility], tel:[phone] [facility] 10 NMS No Information 8 Manabat Amalia. [address] [place] [address], [address] [place] [address], . tel:[phone] [facility], [address] [place] [address], [facility], tel:[phone] OP A NBrit 75 [facility] (chief complaint) Sep-2 8 8 Paradise Medley. [address] [place] [address], [address] [place] [address], [place]. tel:[phone] [facility], [address] [place] [address], [facility], tel:[phone] OP A NBrit 75 NMR Sep-2 7 8 Tyron Abraham. [address] [place] [address], [address] [place] [address], [place]. tel:[phone] [facility], [address] [place] [address], [facility], tel:[phone] [facility] No Information Sep-2 3-201 8 Eleck Lexie. [address] [place] [address], [id number], [place]. tel:[phone] [facility], [address] [place] [address], [id number], tel:[phone] [facility] NMS follow up (chief complaint)di abetes (follow up) (chief complaint) Type 2 diabetes mellitus with hyperglycemiaIncontinence without sensory awareness Sep-2 0-201 8 Eleck Lexie. [address] [place], [place], [id number], [place]. tel:[phone] [facility], [address] [place] [address], [id number], [place] tel:[phone] OP A NBrit 75 [facility] (chief complaint)Me dication Management (chief complaint) 8 Paradise Medley. [address] [place] [address], [id number], [place]. tel:[phone] [facility], [address] [place] [address], [address], [place] tel:[phone] [facility] 10 [facility] No Information 8 Rodolfo Hyltonnifer. [address] [place] [address], [id number], [place]. tel:[phone] [facility], [address] [place] [address], [address], [place] tel:[phone] OP A NBrit 75 NMR Jul- 8 Tyron Abraham. [address] [place] [address], [id number], [place]. tel:[phone] [facility], [address] [place] [address], [address], [place] tel:[phone] [facility] 10 [facility] follow up visit (chief complaint) Body mass index (BMI) 31.0-31.9, adultBack pain 8 Eleck Lexie. [address] [place] [address], [id number], [place]. tel:[phone] [facility], [address] [place] [address], [address], [place] tel:[phone] OP A NBrit 75 NMR 8 Paradise Medley. [address] [place] [address], [id number], [place]. tel:[phone] [facility], [address] [place] [address], [address], [place] tel:[phone] OP A NBrit 75 NMR 0 8 Salvadorenriqueta Yanelis. [address] [place] [address], [id number], [place]. tel:[phone] [facility], [address] [place], [address], [place] tel:[phone] OP A Bris 10 NMS establish care (chief complaint)me dication (chief complaint) Back pain 8 Ugo Thompson. [address] [place], [place], [id number], [place]. tel:[phone] As per patient privacy policy some of the clinical information may not be visible. Family History Family Member Type Diagnosis Age At Onset Father Problem (finding) Mother Problem (finding) hypertension Mother Problem (finding) Diabetes mellitus Mother Problem (finding) Alive and well Payers Payer name Insurance type Covered libertarian ID Werner kirklandquinten(chilo) Michelle Nicole [facility] [id number] Social History Type Description Quantity Date Captured Comments Alcohol Use Details Unknown Caffeine Use Details Unknown Tobacco Use Status Smoking Status No Information Sex Male Sexual Orientation Straight or heterosexual Gender Identity Male Chief Complaint And Reason For Visit No Information Plan Of Treatment Date Type Action Status Goal Tobacco cessation counseling completed Goal Tobacco cessation counseling completed Goal Lifestyle education regardin g diet completed Goal Tobacco cessation counseling completed Future Order: Lab Order LIPID PA STEVE ([id number]), Ordered on: Ordered Future Order: Lab Order COMPREHE NSIVE METABOLIC PANEL ([id number]), Ordered on: Ordered Future Order: Lab Order COMPLETE BLOOD COUNT ([id number]), Ordered on: Ordered Future Order: Lab Order TSH ([id number]), Ordere d on: Ordered History Of Present Illness Encounter Date Complaint History Of Prese nt Illness Psychiatric This is a follow up visit. The patient does not present with anxious/fearful thoughts, depressed mood, difficulty falling asleep or difficulty staying asleep. Additional information: anxiety and depression is in control. He is taking his medications he does well. Sleeping too much lately. follow up Asking for a med ication because he's wetting the bed. Not having problems peeing. Also notes that he was on metformin in the past, forgot to mention that he's diabetic, hasn't been taking metformin. diabetes (follow up) Pertinent n egatives include fatigue, pain, weight gain and weight loss. Medication Management Medication ManagementZyprexa 10mg PO QD Valium 10mg, PO QHSPt is Togolese speaking only his stepson comes into his visits to help with interpution. Change Ambien to Ambien CR 12.5mg, PO QHSAdd prazosin 1mg PO QHS for nightmares. Reviewed he risks and benefits of the medication and he agreed to the plan. Psychiatric This is a follow up visit. The patient presents with anxious/fearful thoughts, depressed mood, difficulty falling asleep, difficulty staying asleep, excessive worry, hallucinations (auditory) and paranoia but denies thoughts of or suicide. Additional information: anxietydepression . A/H sometimes4/10behaviors: not a problem when he is on this medications. follow up visit Was taking napro xen for back pain in the past, wondering if he can get more. establish care bh intake medication needs naproxen f or back pain Instructions Date Instruction Additional Infor mindi Discussed discontinu ing Zyprexa 2.5mg tabs due to sedation and staying with Zyprexa 20mg. PO QD. Related to Schizophrenia It's possible that y our urinary problems are because your sugars are so high. I refilled your metformin and increased your oxybutinyn. We'll see you back in a monht to see how things are going. Related to Type 2 diabetes mellitus with hyperglycemia I sent in naproxen t o the pharmacy for you. If it continues to be a problem, let me know and I'll refer you to physical therapy. Related to Back pain Giving encouragement to exercise Related to Body mass index (BMI) 31.0-31.9, adult Lifestyle education regarding di et Related to Body mass index (BMI) 31.0-31.9, adult As per patient privacy policy some of the clinical information may not be visible. Assessments Type Assessment Date No Information
--- OUTSIDE RECORDS SUMMARY | 2024-09-12 13:24 | XMS_ITS | Encounter Summary ---
Author Organization [employer] [facility] Address [address] [facility] 7t [place] [address] Care Team Providers Care Manager Park Name Role Phone Name, Nick BOWENS Primary Care Provider [phone] Encounter Details Date Type Department Care Team (Latest Contact Info) Description 10/13/2021 Abstract [facility] CONVERSIONS Dental, Provider, DDS Social History Tobacco Use Types Packs/Day Years Used Date Smoking Tobacco: Never Assessed Sex and Gender Information Value Date Recorded Sex Assigned at Male 05/17/2022 10:18 AM EDT Legal Sex Male 10:18 AM EDT Gender Identity Male 05/17/2022 10:18 AM EDT Sexual Orientation Straight 05/17/2022 10 :18 AM EDT documented as of this encounter Plan of Treatment Upcoming Encounters Date Type Department Care Team (Late st Contact Info) Description 12/14/2024 10:00 AM EDT Office Visit [facility] MEDICINE [address] [place] [address] Name, MD Nick [address] [place] [address] documented as of this encounter Visit Diagnoses Not on filedocumented in this encounter Care Teams Manager Park Relationship Specialty Start Date End Date Name, MD Nick [address] [place] [address] PCP - General Family Medicine 10/14/15 documented as of this encounter
--- OUTSIDE RECORDS SUMMARY | 2024-09-12 13:24 | XMS_ITS | Encounter Summary ---
Author Organization [facility] Address [address] [facility] 7t [place] [address] Care Team Providers Care Program Support Clerk Name Role Phone Name, Nick BOWENS Primary Care Provider [phone] Encounter Details Date Type Department Care Team (Latest Contact Info) Description 09/07/2019 Abstract [facility] CONVERSIONS Dental, Provider, DDS Social History [...] 10:00 AM EDT Office Visit [facility] MEDICINE [address] [place] [address] Name, MD Nick [address] [place] [address] documented as of this encounter Visit Diagnoses Not on filedocumented in this encounter Care Teams Program Support Clerk Relationship Specialty Start Date End Date NameNick MD [address] [place] [address] PCP - General Family Medicine 10/14/15 documented as of this encounter
--- OUTSIDE RECORDS SUMMARY | 2024-09-12 13:24 | XMS_ITS | Encounter Summary ---
Author Organization [employer] Address [address] [facility] 7[address] [place] [address] Care Team Providers Care Customs Entry Writer Name Role Phone Name, Nick BOWENS Primary Care Provider [phone] Reason for Visit * Reason Comments Follow-up Encounter Details Date Type Department Care Team ([facility] st Contact Info) Description 09/12/2024 10:00 AM EST Office Visit [facility] [address] [place], [place] [id number] Name, MD Nick [address] [place] [address] Tachycardia (Primary Dx); Type 2 diabetes mellitus without complication, without long-term current use of insulin (CMS/FORMERLY [facility]) Social History Tobacco Use Types Packs/Day Years [...] AM EDT documented as of this encounter Last Filed Vital Signs Vital Sign Reading [...] Mass Index 27.91 09/12/2024 10:10 AM EST documented in this encounter Progress Notes * Nick Johnson MD - 09/12/2024 10:00 AM EST Subjective Patient ID: Iftikhar Wen is a 68 y.o. male who presents for Follow-up. Patient comes for a follow-up visit. He is tachycardic. His heart rhythm is regular. He denies any recent illness, he is afebrile, he denies anxiety, he does not feel he has heat intolerance, he denies significant hand tremors. He has noted weight loss. He has lost about 20 pounds since last year. He attributes his weight loss to stress related to taking care of his . His only complaint todayis joint pains that are worse on the knees. He has been using his medications as prescribed. He is in good spirits. He does not bring his glucose meter but blood sugar is well-controlled based on hishemoglobin A1c. Review of Systems Constitutional: Positive for unexpected weight change. Negative for chills, fatigue and fever. HENT: Negative for sore throat. Respiratory: Negative for cough, chest tightness and shortness of breath. Cardiovascular: Negative for chest pain, palpitations and leg swelling. Gastrointestinal: Negative for abdominal pain, blood in stool and diarrhea. Endocrine: Negative for heat intolerance. Visit Vitals BP 111/65 (BP Location: Left arm, Patient Position: Sitting, BP Cuff Size: Adult) Pulse (!) 127 Temp 96.6 ??F (35.9 ??C) (Temporal) Resp 20 Ht 5' 9 (1.753 m) Wt 189 lb (85.7 kg) SpO2 97% BMI 27.91 kg/m?? Smoking Status Former BSA 2.04 m?? Objective Physical Exam Constitutional: Appearance: Normal appearance. Cardiovascular: Rate and Rhythm: Regular rhythm. Tachycardia present. Heart sounds: No murmur heard. Pulmonary: Effort: Pulmonary effort is normal. No respiratory distress. Breath sounds: No wheezing, rhonchi or rales. Abdominal: Palpations: Abdomen is soft. Tenderness: There is no abdominal tenderness. Musculoskeletal: Right lower leg: No edema. Left lower leg: No edema. Neurological: Mental Status: He is alert. Lab Results Component Value Date HGBA1C 5.3 09/12/2024 HGBA1C 5.8 08/19/2023 HGBA1C 5.6 07/21/2022 Latest Reference Range & Units 08/22/23 10:46 08/26/23 15:00 09/12/23 16:00 09/19/23 11:36 Glucose 60 - 115 mg/dL 121 (H) 130 (H) Urea Nitrogen (BUN) 9 - 16 mg/dL 19 (H) 13 Creatinine, Serum 0.5 - 1.4 mg/dL 1.41 (H) 1.03 Sodium 135 - 145 mmol/L 137 141 Potassium 3.3 - 5.1 mmol/L 4.0 4.3 Chloride 96 - 108 mmol/L 100 104 Carbon Dioxide 22 - 29 mmol/L 25 29 Calcium 8.4 - 10.2 mg/dL 9.4 9.5 Albumin Level 3.5 - 5.0 g/dL 4.5 Bilirubin, Total 0.0 - 1.0 mg/dL 0.6 AST 5 - 37 U/L 35 ALT 0 - 40 U/L 15 Anion Gap 12 - 20 16 12 Total Protein 6.5 - 8.0 g/dL 7.5 Cholesterol <200 mg/dL 100 HDL Cholesterol >40 mg/dL 33 (L) LDL Cholesterol Calculated <100 mg/dL 47 Triglycerides <150 mg/dL 104 Red Blood Count 4.60 - 5.80 X10*6/uL 4.39 (L) Hemoglobin 14.0 - 18.0 g/dl 13.2 (L) Hematocrit 42.0 - 52.0 % 40.2 (L) Mean Corpuscular Volume 80.0 - 98.0 fL 91.6 Mean Corpuscular Hemoglobin 27.0 - 33.0 pg 30.1 Mean Corpuscular HGB Conc 31.0 - 36.0 g/dl 32.8 Red Cell Distribution Width 11.0 - 16.0 % 13.0 Platelet Count 160 - 400 X10*3/uL 201 Eosinophils Percent Auto 0 - 4 % 5.7 (H) Lymphocytes Absolute Auto 1.2 - 4.9 X10*3/uL 1.9 Basophils Absolute Auto 0.0 - 0.2 X10*3/uL 0.1 Monocytes Absolute Auto 0.1 - 1.2 X10*3/uL 0.6 Neutrophils Absolute Auto 2.0 - 8.3 x10*3/uL 2.8 Neutrophils Percent Auto 45 - 73 % 49.8 Basophils Percent Auto 0 - 2 % 1.2 Eosinophils Absolute Auto 0.0 - 0.4 X10*3/uL 0.3 Lymphocytes Percent Auto 20 - 40 % 33.2 Monocytes Percent Auto 2 - 11 % 9.7 Imm Gran Abs Auto 0.00 - 0.03 X10*3/uL 0.02 Imm Gran Pct Auto 0.0 - 0.4 % 0.4 Hepatitis C Antibody Nonreactive Nonreactive Microalbumin Urine mg/L 15.0 Cologuard Result Negative Sample Could Not Be Processed 7 Negative Alkaline Phosphatase 39 - 117 U/L 59 Creatinine, Urine mg/dL 169.45 Estimated Glomerular Filt Rate 50 >60 LAB COLOGUARD?? COLON CANCER SCREEN Rpt Rpt Mean Platelet Volume 9.4 - 12.4 fL 10.7 Microalbum Creatinine Ratio Ur <30 ug/mg cr 8.8 NRBC Abs Auto 0.0 - 0.012 X10*3/uL 0.000 NRBC Pct Auto 0.0 - 0.2 /100WBC 0.0 Prostate Specific Antigen <0.05 - 4.0 ng/mL 0.51 White Blood Count 4.8 - 10.8 X10*3/uL 5.7 (H): Data is abnormally high (L): Data is abnormally low Rpt: View report in Results Review for more information Assessment/Plan Diagnoses and all orders for this visit: Tachycardia Comments: Patient with sinus tachycardia. He arrived with a hyper 227. EKG showed heart rate 105. It is unclear why he has this. He is afebrile, he denies anxiety, he does not have any history of vomiting or diarrhea to suggest dehydration. He does not use cocaine or stimulants. He is asymptomatic. He has associated weight loss which suggest possible hyperthyroidism but he denies any heat intolerance and he does not have hand tremors. I recommended evaluation with chest x-ray and blood work listed below.Further recommendation based on results. Orders: - TSH W/Reflex to FT4; Future - ECG 12 lead - XR Chest 2 Views; Future Type 2 diabetes mellitus without complication, without long-term current use of insulin ([facility]) Comments: Well-controlled. I did not recommend make changes. Orders: - POCT Glucose - POCT HGB A1C - CBC auto differential; Future - Comprehensive Metabolic Panel; Future - Lipid Panel, Standard; Future - Albumin, Random Urine W/Creatinine; Future documented in this encounter Plan of Treatment Upcoming Encounters Date Type Department Care Team (Late st Contact Info) Description 12/14/2024 10:00 AM EDT Office Visit [facility] [address] [place] [address] Nick Johnson MD [address] [place] [address] Scheduled Orders Name Type Priority Associated Diagnoses Orde r Schedule CBC auto differential Lab Routine Type 2 diabetes mellitus without complication, without long-term current use of insulin (CMS/HCC) Expected: 09/12/2024 (Approximate), Expires: 09/12/2025 Comprehensive Metabolic Panel Lab Routine Type 2 diabetes mellitus without complication, without long-term current use of insulin (CMS/HCC) Expected: 09/12/2024 (Approximate), Expires: 09/12/2025 Lipid Panel, Standard Lab Routine Type 2 diabetes mellitus without complication, without long-term current use of insulin (CMS/HCC) Expected: 09/12/2024 (Approximate), Expires: 09/12/2025 Albumin, Random Urine W/Creatinine Lab Routine Type 2 diabetes mellitus without complication, without long-term current use of insulin (CMS/HCC) Expected: 09/12/2024 (Approximate), Expires: 09/12/2025 TSH W/Reflex to FT4 Lab Routine Tachycardia Expected: 09/12/2024 (Approximate), Expires: 09/12/2025 documented as of this encounter Procedures Procedure Name Priority Date/Time Associated Diagnosis Comments XR CHEST 2 VIEWS Routine 09/12/2024 10:4 7 AM EST Tachycardia ECG 12-LEAD Routine 09/12/2024 10:36 AM EST Tachycardia POCT GLYCATED HEMOGLOBIN, TOTAL Routine 09/12/2024 10:12 AM EST Type 2 diabetes mellitus without complication, without long-term current use of insulin ([facility]) POCT GLUCOSE Routine 09/12/2024 10:11 AM EST Type 2 diabetes mellitus without complication, without long-term current use of insulin ([facility]) documented in this encounter Results * XR Chest 2 Views (09/12/2024 10:47 AM EST) Anatomical Region Laterality Modality Chest Radiographic Mariann ging 09/12/2024 10:4 7 AM EST Narrative 09/12/2024 11:05 AM EST ?[facility] ?[address] ?[place] [address] ?XRay Report ? Signed ? Patient: Wen,Iftikhar ?MR#: [id number] ?? [id number] ? : 1955 ?Acct:[id number] ? Age/Sex: 68 / M ?ADM Date: 09/12/24 ? Loc: HO.HHCX ? Attending Dr: Nick Johnson MD ? Ordering Physician: Nick Johnson MD ?? Date of Service: 09/12/24 ?? Procedure(s): XR chest 2V ?? Accession Number(s): [id number] ? cc: Nick Johnson MD ? EXAMINATION: [...] DD/ 1047 ? TD/TT: 09/12/24 1055 ? Development Rep: ? Procedure Note Alla, Image - 09/12/[address] [address] XRay Report Signed Patient: Iftikhar WenMR#: [id number] : 7Acct:[id number] Age/Sex: 68 / MADM Date: 09/12/24 Loc: HO.HHCX Attending Dr: Nick Johnson MD Ordering Physician: Nick Johnson MD Date of Service: 09/12/24 Procedure(s): XR chest 2V Accession Number(s): [id number] cc: Nick Johnson MD EXAMINATION: XR CHEST 2 VIEWS HISTORY: [...] 09/12/24 1102 DD/ 1047 TD/TT: 09/12/24 1055 Development Rep: Result Olamide Johnson MD IMG XR PROCEDURES Final Result * ECG 12 lead (09/12/2024 10:36 AM EST) Narrative NameNick MD - 09/12/2024 10:36 AM EST Sinus tachycardia. ??Heart rate of 105. ??No other abnormality. Result Olamide Johnson MD ECG ORDERABLES Final Result * POCT HGB A1C (09/12/2024 10:12 AM EST) Hemoglobin A1C 5.3 4.0 - 6.0 % QC Media Lot # [id number] Lot# Expiration Date , Blood 09/12/2024 10:1 2 AM EST Result Olamide Johnson MD POINT OF CARE TEST ENTER/EDIT OR DERABLES Final Result * POCT Glucose (09/12/2024 10:11 AM EST) Glucose Blood, POC 159 60 - 200 mg/dL QC Media Lot # [id number] Lot# Expiration Date ,025 Blood Capillary blood specimen / Unknown 09/12/2024 10:11 AM EST Result Olamide Johnson MD POINT OF CARE TEST ENTER/EDIT OR DERABLES Final Result documented in this encounter Visit Diagnoses Diagnosis Tachycardia- Primary Unspecified tachycardia Type 2 diabetes mellitus without complication, without long-term current use of insulin ([facility]) documented in this encounter Additional Health Concerns Assessment Noted Time PHQ-9 Depression Total Score: 8 09/12/19 25 10:13 AM EST documented as of this encounter Care Teams Customs Entry Writer Relationship Specialty Start Date End Date Name, MD Nick [address] [place] [address] PCP - General Family Medicine 10/14/15 documented as of this encounter
== END 2024-09-12 10:48 | disposition home or self-care (01) ==
LOC: HO.HHCX 10:47
PROVIDERS: Visit Provider Internal Medicine Geriatric Medicine
DX: R00.0 Tachycardia, unspecified (principal)
CPT/HCPCS: 71046

== ENCOUNTER → 2024-09-12 10:47 | Outpatient (BNV) | payer OTHER, SELFPAY | PROVIDERS: Visit Provider Radiology Diagnostic Radiology | DX: R00.0 Tachycardia, unspecified (principal) | CPT/HCPCS: 71046 ==

== ENCOUNTER 2024-09-13 09:39 | Outpatient (REF) | payer MEDICAID, SELFPAY ==
--- OUTSIDE RECORDS SUMMARY | 2024-09-13 11:02 | XMS_ITS | Continuity of Care Document ---
Author Organization [facility] Address [address] [place] [address] Phone Care Team Providers Care Election Judge Name Role Phone Amalia Miller RN Unavailable [...] Location Reason(s) For Visit Diagnoses Date Provider [employer], [address] [place] [address], [facility], tel:[phone] P[facility] Care Bris 10 NMS No Information 8 Manabat Amalia. [address] [place] [address], [address] [place] [address], . tel:[phone] [employer], [address] [place] [address], [facility], tel:[phone] OP A NBrit 75 NMR Psychiatric (chief complaint) Sep-2 8 8 Paradise Medley. [address] [place] [address], [address] [place] [address], [place]. tel:[phone] [employer], [address] [place] [address], [facility], tel:[phone] OP A NBrit 75 NMR Sep-2 7 8 Tyron Abraham. [address] [place] [address], [address] [place] [address], [place]. tel:[phone] [employer], [address] [place] [address], [facility], tel:[phone] [facility] NMS No Information Sep-2 3-201 8 Eleck Lexie. [address] [place] [address], [id number], [place]. tel:[phone] [employer], [address] [place] [address], [address], tel:[phone] [facility] NMS follow up (chief complaint)di abetes (follow up) (chief complaint) Type 2 diabetes mellitus with hyperglycemiaIncontinence without sensory awareness Sep-2 0-201 8 Eleck Lexie. [address], [place], [id number], [place]. tel:[phone] [facility], [address] [place] [address], [id number], [place] tel:[phone] OP A NBrit 75 NMR Psychiatric (chief complaint)Me dication Management (chief complaint) 8 Paradise Medley. [address] [place] [address], [id number], [place]. tel:[phone] [facility], [address] [place] [address], [address], [place] tel:[phone] [facility] Bris 10 [facility] No Information 8 Rodolfo Hyltonnifer. [address] [place] [address], [id number], [place]. tel:[phone] [facility], [address] [place] [address], [id number], [place] tel:[phone] OP A NBrit 75 NMR Jul- 8 Tyron Abraham. [address] [place] [address], [id number], [place]. tel:[phone] [employer], [address] [place] [address], [address], [place] tel:[phone] [facility] 10 [facility] follow up visit (chief complaint) Body mass index (BMI) 31.0-31.9, adultBack pain 8 Eleck Lexie. [address] [place] [address], [id number], [place]. tel:[phone] [employer], [address] [place] [address], [address], [place] tel:[phone] OP A NBrit 75 NMR 8 Paradise Medley. [address] [place] [address], [id number], [place]. tel:[phone] [employer], [address] [place] [address], [address], [place] tel:[phone] OP A NBrit 75 NMR 0 8 Salvadorenriqueta Yanelis. [address] [place] [address], [id number], [place]. tel:[phone] [facility], [address] [place], [address], [place] tel:[phone] OP A Bris 10 NMS establish care (chief complaint)me dication (chief complaint) Back pain 8 Ugo Thompson. [address], [place], [id number], [place]. tel:[phone] As per patient privacy policy some of the clinical information may not be visible. Family History Family Member Type Diagnosis Age At Onset Father Problem (finding) Mother Problem (finding) hypertension Mother Problem (finding) Diabetes mellitus Mother Problem (finding) Alive and well Payers Payer name Insurance type Covered alliance party ID Werner kirklandquinten(chilo) Michelle Nicole [facility] [id number] Social History Type Description Quantity Date Captured Comments Alcohol Use Details Unknown Caffeine Use Details Unknown Tobacco Use Status Smoking Status No Information Sex Male Sexual Orientation Straight or heterosexual Gender Identity Male Chief Complaint And Reason For Visit No Information Plan Of Treatment Date Type Action Status Goal Tobacco cessation counseling completed Goal Lifestyle education regardin g diet completed Goal Tobacco cessation counseling completed Goal Tobacco cessation counseling completed Future Order: Lab Order LIPID PA STEVE ([id number]), Ordered on: Ordered Future Order: Lab Order COMPREHE NSIVE METABOLIC PANEL ([id number]), Ordered on: Ordered Future Order: Lab Order COMPLETE BLOOD COUNT ([id number]), Ordered on: Ordered Future Order: Lab Order [...] PO QD Valium 10mg, PO QHSPt is English speaking only his stepson comes into his [...] to physical therapy. Related to Back pain Lifestyle education regarding di et Related to Body mass index (BMI) 31.0-31.9, adult Giving encouragement to exercise Related to Body mass index (BMI) 31.0-31.9, adult As per patient privacy policy some of the clinical information may not be visible. Assessments Type Assessment Date No Information
[2024-09-13 11:35] LABS: MANUAL DIFF FLAG NO
[2024-09-13 12:03] LABS: Basophils Absolute Auto 0.1 X10*3/uL (0.0-0.2); Basophils Percent Auto 1.1 % (0-2); Eosinophils Absolute Auto 0.3 X10*3/uL (0.0-0.4); Eosinophils Percent Auto 4.8 % (0-4); Hematocrit 42.1 % (42.0-52.0); Hemoglobin 13.7 g/dl (14.0-18.0); Imm Gran Abs Auto 0.01 X10*3/uL (0.00-0.03); Imm Gran Pct Auto 0.2 % (0.0-0.4); Lymphocytes Percent Auto 37.8 % (20-40); Mean Corpuscular HGB Conc 32.5 g/dl (31.0-36.0); Mean Corpuscular Hemoglobin 30.4 pg (27.0-33.0); Mean Corpuscular Volume 93.3 fL (80.0-98.0); Mean Platelet Volume 11.6 fL (9.4-12.4); Monocytes Absolute Auto 0.5 X10*3/uL (0.1-1.2); Monocytes Percent Auto 9.1 % (2-11); Neutrophils Absolute Auto 2.5 x10*3/uL (2.0-8.3); Platelet Count 182 X10*3/uL (160-400); Red Blood Count 4.51 X10*6/uL (4.60-5.80); Red Cell Distribution Width 12.9 % (11.0-16.0); White Blood Count 5.4 X10*3/uL (4.8-10.8)
[2024-09-13 12:26] LABS: Creatinine Urine 135.66 mg/dL; Microalbum/Creatinine Ratio Ur 6.6 ug/mg cr (<30)
[2024-09-13 12:51] LABS: Alanine Aminotransferase 15 U/L (0-40); Albumin Level 4.3 g/dL (3.5-5.0); Alkaline Phosphatase 73 U/L (39-117); Anion Gap 16 (12-20); Aspartate Amino Transferase 26 U/L (5-37); Bilirubin Total 0.5 mg/dL (0.0-1.0); Blood Urea Nitrogen 14 mg/dL (9-16); Calcium 9.4 mg/dL (8.4-10.2); Carbon Dioxide 26 mmol/L (22-29); Chloride 103 mmol/L (96-108); Cholesterol 101 mg/dL (<200); Estimated Glomerular Filt Rate > 60; Glucose Random 96 mg/dL (60-115); HDL Cholesterol 36 mg/dL (>40); LDL Cholesterol Calculated 46 mg/dL (<100); Potassium 3.3 mmol/L (3.3-5.1); Sodium 142 mmol/L (135-145); Total Protein 7.5 g/dL (6.5-8.0); Triglycerides 95 mg/dL (<150)
== END 2024-09-13 09:40 | disposition home or self-care (01) ==
LOC: HO.HHCL 09:39
PROVIDERS: Visit Provider Internal Medicine Geriatric Medicine
DX: E11.9 Type 2 diabetes mellitus without complications (principal); R00.0 Tachycardia, unspecified
CPT/HCPCS: 36415; 80053; 80061; 82043; 82570; 84443; 85025

== ENCOUNTER 2024-12-05 16:03 | Outpatient (REF) | payer MEDICARE, SELFPAY ==
--- NOTE | ~2024-12-05 | CT_ITS ---
CLINICAL HISTORY: F17.210 - Nicotine dependence, cigarettes, uncomplicated CT lung cancer screening (LDCT) Comparison: CT/TN/SR - CT LUNG SCREENING - 11/14/23 14:30 EDT Technique: Axial CT images of the chest using low-dose technique. Referring provider counseled the patient on shared decision-making for LDCT screening. Additional counseling was provided on smoking cessation. Effective radiation dose total: DLP 49.7 mGycm, CTDIvol 1.4 mGy. Findings: Nonspecific peribronchial ground-glass opacification in the left upper lobe is similar to the prior exam. Left lower lobe ground-glass opacity previously described has resolved. Right paraspinal mixed density opacity is unchanged and consistent with scarring. No lung nodules are identified. There is mild paraseptal emphysema. There are no coronary artery calcifications. Limited upper abdomen: Unremarkable Other: None Impression: LungRADS 2 - Benign Appearance: Continue annual screening with low dose Chest CT in 12 months. ##L2# Category 1: Normal; continue annual screening Category 2: Benign appearance or behavior, continue annual screening Category 3: Probably benign, [address] recommended Category 4A: Suspicious, [address] recommended; may consider PET/CT Category 4B: Suspicious, Additional diagnostics and/or tissue sampling recommended Category 4X: Suspicious, Additional diagnostics and/or tissue sampling recommended Category 0: Recalls (incomplete screen due to Incomplete coverage, Noise, Respiratory motion, Expiration, Obscured by acute abnormality) This document has been electronically signed by: Juwan Ariza MD on 12/06/2024 13:24:37
--- OUTSIDE RECORDS SUMMARY | 2024-12-05 16:06 | XMS_ITS | Encounter Summary ---
Author Organization [employer] Address [address] [facility] [address] [place] [address] Care Team Providers Care Plant Care Worker Name Role Phone Name, Nick BOWENS Primary Care Provider [phone] Reason for Visit * Reason Comments Med Refill Encounter Details Date Type Department Care Team ([facility] st Contact Info) Description 08/18/2023 Refill [facility] [address] [place], [place] [phone] Name, MD Nick [address] [place] [address] Constipation, unspecified constipation type Social History Tobacco [...] AM EDT documented as of this encounter Functional Status * Over the past 2 weeks, how often have you been bothered by any of the following problems? Question Answer Date of Assessment Author Patient Health Questionnaire -2 Score 0 08/19/2023 10:24 AM Yin Cosme * Over the past 2 weeks, how often have you been bothered by any of the following problems? Question Answer Date of Assessment Author Little interest or pleasure in doing things Not at all 08/19/2023 10:24 AM Yin Cosme Feeling down, depressed, or hopeless Not at all 08/19/2023 10:24 AM Yin Cosme Trouble falling or staying asleep, or sleeping too much Not at all 08/19/2023 10:24 AM Emily Centeno Feeling tired or having harvey le energy Not at all 08/19/2023 10:24 AM Yin Cosme Poor appetite or overeating Not at all 08/19/2023 10 :24 AM Emily Cosme Feeling bad about yourself - or that you are a failure or have let yourself or your family down Not at all 08/19/2023 10:24 AM Yin Cosme Trouble concentrating on things, such as reading the newspaper or watching television Not at all 08/19/2023 10:24 AM Yin Cosme Moving or speaking so slowly that other people could have noticed? Or the opposite - being so fidgety or restless that you have been moving around a lot more than usual. Not at all 08/19/2023 10:24 AM Emily Patel Thoughts that you would be better off or hurting yourself in some way Not at all 08/19/2023 10:24 AM Ezequiel Cosme Patient Health Questionnaire -9 Score 0 08/19/2023 10:24 AM Yin Cosme documented as of this encounter Plan of Treatment Upcoming Encounters Date Type Department Care Team (Late st Contact Info) Description 12/14/2024 10:00 AM EDT Office Visit [facility] [address] [place] [address] Name, MD Nick [address] [place] [address] documented as of this encounter Visit Diagnoses Diagnosis Constipation, unspecified constipation type documented in this encounter Care Teams Plant Care Worker Relationship Specialty Start Date End Date Name, MD Nick [address] [place] [id number] PCP - General Family Medicine 10/14/15 documented as of this encounter
--- OUTSIDE RECORDS SUMMARY | 2024-12-05 16:06 | XMS_ITS | Encounter Summary ---
Author Organization [employer] Address [address] [facility] 7t [place] [address] Care Team Providers Care Cnc Lathe Programmer Name Role Phone Name, Nick BOWENS Primary Care Provider [phone] Reason for Visit * Reason Comments Med Refill Encounter Details Date Type Department Care Team (Late Contact Info) Description 04/15/2023 Refill [facility] [address] [place] [phone] Edwin Ocasio AGNP Type 2 diabetes mellitus [...] Description 12/14/2024 10:00 AM EDT Office Visit [facility] [address] [place] [phone] Name, MD Nick [address] [place] [address] documented as of this encounter Visit Diagnoses Diagnosis Type 2 diabetes mellitus without complication, without long-term current use of insulin (CMS/HCC) documented in this encounter Care Teams Cnc Lathe Programmer Relationship Specialty Start Date End Date Name, MD Nick [address] [place] [address] PCP - General Family Medicine 10/14/15 documented as of this encounter
--- OUTSIDE RECORDS SUMMARY | 2024-12-05 16:08 | XMS_ITS | Encounter Summary ---
Author Organization [employer] Address [address] [facility] 7t [place] [address] Care Team Providers Care Dinkey Skinner Name Role Phone Name, Nick BOWENS Primary Care Provider [phone] Encounter Details Date Type Department Care Team (Latest Contact Info) Description 09/07/2019 Abstract [facility] CONVERSIONS Dental, Provider, DDS Social History Tobacco [...] Description 12/14/2024 10:00 AM EDT Office Visit [facility] [address] [place] [address] NameNick MD [address] [place] [address] documented as of this encounter Visit Diagnoses Not on filedocumented in this encounter Care Teams Dinkey Skinner Relationship Specialty Start Date End Date NameNick MD [address] [place] [address] PCP - General Family Medicine 10/14/15 documented as of this encounter
--- OUTSIDE RECORDS SUMMARY | 2024-12-05 16:08 | XMS_ITS | Clinical Summary ---
Author Organization [employer] Address [address] [facility] [address] [place] [address] Care Team Providers Care Fugitive Detective Name Role Phone Name, Nick BOWENS Primary Care Provider [phone] Allergies Active Allergy Reactions Criticality Noted Date [...] complication, unspecified whether intermission coordinator insulin use ([facility]) TEST BLOOD SUGAR SIX TIMES DAILY 100 strip 11 023 Active TRUEplus Lancets 33G misc TEST BLOOD SUGAR FIVE TIMES DAILY 100 each 11 023 Active dulaglutide (Trulicity) 0.75 MG/0.5ML solution pen-injectorInd ications:Type 2 diabetes mellitus without complication, without long-term current use of insulin (CMS/[facility]) Inject 0.75 mg under the skin 1 (one) time per week. 4 each 5 Active senna (Senokot) 8.6 MG tabletIndicatio ns:Constipation , unspecified constipation type TAKE 2 TABLETS BY MOUTH EVERY DAY AT BEDTIME 180 tablet 1 024 Active Trulicity 1.5 MG/0.5ML solution auto-injectorIn dications:Type 2 diabetes mellitus with other specified complication, unspecified whether intermission coordinator insulin use ([facility]) INJECT ONE PEN (=1.5MG) SUBCUTANEOUSLY ONCE A WEEK DIRECTED 2 mL 5 025 Active lisinopril 10 MG tablet TAKE 1 TABLET BY MOUTH EVERY MORNING 90 tablet 1 025 Active omeprazole (PriLOSEC) [address] capsule TAKE 1 CAPSULE BY MOUTH EVERY EVENING 90 capsule 025 Active atorvastatin (Lipitor) 40 MG tablet TAKE 1 TABLET BY MOUTH AT BEDTIME 90 tablet 1 025 Active Acetaminophen Extra Strength 500 MG tablet TAKE 1 TABLET BY MOUTH EVERY 8 HOURS NEEDED FOR MODERATE PAIN 90 tablet 025 Active clotrimazole (Lotrimin) 1 % cream APPLY TOPICALLY TO FEET AND TOES TWICE DAILY 60 g 025 Active metFORMIN (Glucophage) 850 MG tablet TAKE 1 TABLET BY MOUTH TWICE DAILY IN THE MORNING AND IN THE EVENING WITH FOOD 180 tablet 025 Active Aspirin Low Dose 81 MG EC tablet TAKE 1 TABLET BY MOUTH EVERY EVENING 90 tablet 1 025 Active ketoconazole (NIZOral) 2 % shampoo APPLY TOPICALLY TO AFFECTED AREA(S) TWICE A WEEK 120 mL 2 025 Active naproxen (Naprosyn) 500 MG tabletIndicatio ns:Type 2 diabetes mellitus without complication, without long-term current use of insulin ([facility]) TAKE 1 TABLET BY MOUTH TWICE DAILY IN THE MORNING AND IN THE EVENING WITH FOOD NEEDED FOR PAIN 60 tablet 025 Active ketoconazole (NIZOral) 2 % shampoo APPLY TOPICALLY TO AFFECTED AREA(S) TWICE A WEEK 120 mL 2 024 2024 Discontinued Aspirin Low Dose 81 MG EC tablet TAKE 1 TABLET BY MOUTH EVERY EVENING 90 tablet 1 024 2024 Discontinued naproxen (Naprosyn) 500 MG tabletIndicatio ns:Type 2 diabetes mellitus without complication, without long-term current use of insulin ([facility]) TAKE 1 TABLET BY MOUTH TWICE DAILY IN THE MORNING AND IN THE EVENING WITH FOOD NEEDED FOR PAIN 60 tablet 1 025 2024 Discontinued Active Problems Problem Noted Date Diagnosed Date History of psychosis 09/12/2024 Tobacco user 07/15/2022 Prostatism 12/20/2017 Chronic obstructive lung disease 04/08/2017 Type 2 diabetes mellitus 02/23/2016 Pure hypercholesterolemia 12/20/2011 Essential hypertension 12/20/2011 Depressive disorder 12/20/2011 Anxiety state 12/20/2011 Resolved Problems Problem Noted Date Diagnosed Date Resolved Date Occult blood in stools 07/15/202209/12 Encounters Date Type Department Care Team Description 11/09/2024 [facility] [address] [facility] [place] [address] Nick Johnson MD Type 2 diabetes mellitus without complication, without long-term current use of insulin (CMS/HCC) 11/05/2024 Refill [facility] [address] [facility] [place] [address] Nick Johnson MD 11/01/2024 Refill [facility] [address] [facility] [place] [address] Seun Almazan MD 11/01/2024 Refill [facility] [address] [place] [address] Nick Johnson MD 10/11/2024 Telephone [facility] [address] [facility] [place] [address] Nick Johnson MD Prior Auth Prescription (Trulicity) 10/09/2024 [facility]ill [facility] [address] [facility] [place] [address] Nick Johnson MD 09/12/2024 10:00 AM EST Office Visit [facility] [address] [facility] [address] Nick Johnson MD Tachycardia (Primary Dx); Type 2 diabetes mellitus without complication, without long-term current use of insulin (CMS/HCC) 09/12/2024 Refill [facility] [address] [place] [address] Name, MD Nick Type 2 diabetes mellitus without complication, without long-term current use of insulin ([facility]) from Last 3 Months Immunizations Immunization Administration Dates Next Due Hep B, adult [...] Description 12/14/2024 10:00 AM EDT Office Visit [facility] [address] [place] [address] Name, MD Nick [address] [place] [address] Health Maintenance Due Date Last Done Comments [...] 08/19/2023, 08/19/2023, 08/19/2023, Additional history exists Diabetes: Hemoglobin A1C 03/12/2025 025, 08/19/2023, 07/21/2022 Alcohol/Substance Use Screening 09/12/2025 09/12/2024 Depression Screening 09/12/2025 09/12/2024, 09/12/19 SDOH Screening 09/12/2025 09/12/2024 Tobacco Screening 09/12/2025 09/12/2024 Diabetes: Urine Protein Screening 09/13/2025 09/13/2024, 08/22/2023, 09/02/2022, Additional history exists Lipid Panel 09/13/2025 09/13/2024, 11/2023, 09/02/2022, Additional history exists DTaP/Tdap/Td Vaccines (2 - Td or Tdap) [...] patient's age to complete this topic Meningococcal B Vaccine Aged Out No l onger eligible based on patient's age to complete [...] Procedure Name Priority Date/Time Associated Diagnosis Comments TSH W/REFLEX TO FT4 Routine 09/13/2024 9 :41 AM EST Tachycardia ALBUMIN, RANDOM URINE W/CREATININE Routine 09/13/2024 9:41 AM EST Type 2 diabetes mellitus without complication, without long-term current use of insulin (CMS/HCC) LIPID PANEL, STANDARD Routine 09/13/2024 9:41 AM EST Type 2 diabetes mellitus without complication, without long-term current use of insulin (CMS/HCC) COMPREHENSIVE METABOLIC PANEL Routine 09/13/2024 9:41 AM EST Type 2 diabetes mellitus without complication, without long-term current use of insulin (CMS/HCC) CBC WITH AUTO DIFFERENTIAL Routine 09/13/2024 9:41 AM EST Type 2 diabetes mellitus without complication, without long-term current use of insulin (CMS/HCC) XR CHEST 2 VIEWS Routine 09/12/2024 10:4 [...] EST Need for hepatitis C screening test from Last 3 Months or Most Recently Relevant to Health Maintenance Results * TSH W/Reflex to FT4 (09/13/2024 9:41 AM EST) TSH reflex Free T4 2.70 0.32 - 4.0 uIU/mL [facility] Blood Venous blood specimen / Unknown 09/13/2024 9:41 AM EST 09/13/2024 12:06 PM EST us Nick Johnson MD LAB BLOOD ORDERABLES Final Resul t Performing Organization Address City/[facility] Co de Phone Number [facility] [address] [place] [address] [phone] * Albumin, Random Urine W/Creatinine (09/13/2024 9:41 AM EST) Creatinine, Urine 135.66 mg/dL [facility] Microalbumin Urine 9.0 mg/L [facility] Microalbum Creatinine Ratio Ur 6.6 <30 ug/mg cr [facility] Comment:Albumin/Creatinine R atio Reference Ranges: Normal: < 30 ug/mg creatinine Microalbuminuria: 30 - 300 ug/mg creatinineClinical Albuminuria: > 300 ug/mg creatinine Urine (Urine, Random) 09/13/2024 9:41 AM EST 09/13/2024 11:17 AM EST us Nick Johnson MD LAB URINE ORDERABLES Final Resul t Performing Organization Address City/[facility]/ZIP Co de Phone Number [facility] [address] [place] [address] [phone] * (ABNORMAL) CBC auto differential (09/13/2024 9:41 AM EST) White Blood Count 5.4 4.8 - 10.8 X10*3/uL [facility] Red Blood Count 4.51(L) 4.60 - 5.80 X10*6/uL [facility] Hemoglobin 13.7(L) 14.0 - 18.0 g/dl [facility] Hematocrit 42.1 42.0 - 52.0 % [facility] Mean Corpuscular Volume 93.3 80.0 - 98.0 fL [facility] Mean Corpuscular Hemoglobin 30.4 27.0 - 33.0 pg [facility] Mean Corpuscular HGB Conc 32.5 31.0 - 36.0 g/dl [facility] Red Cell Distribution Width 12.9 11.0 - 16.0 % [facility] Platelet Count 182 160 - 400 X10*3/uL [facility] Mean Platelet Volume 11.6 9.4 - 12.4 fL [facility] Neutrophils Percent Auto 47.0 45 - 73 % [facility] Imm Gran Pct Auto 0.2 0.0 - 0.4 % [facility] Lymphocytes Percent Auto 37.8 20 - 40 % [facility] Monocytes Percent Auto 9.1 2 - 11 % [facility] Eosinophils Percent Auto 4.8(H) 0 - 4 % [facility] Basophils Percent Auto 1.1 0 - 2 % [facility] NRBC Pct Auto 0.0 0.0 - 0.2 /100WBC [facility] Neutrophils Absolute Auto 2.5 2.0 - 8.3 x10*3/uL [facility] Imm Gran Abs Auto 0.01 0.00 - 0.03 X10*3/uL [facility] Lymphocytes Absolute Auto 2.0 1.2 - 4.9 X10*3/uL [facility] Monocytes Absolute Auto 0.5 0.1 - 1.2 X10*3/uL [facility] Eosinophils Absolute Auto 0.3 0.0 - 0.4 X10*3/uL [facility] Basophils Absolute Auto 0.1 0.0 - 0.2 X10*3/uL [facility] NRBC Abs Auto 0.000 0.0 - 0.012 X10*3/uL [facility] Blood Venous blood specimen / Unknown 09/13/2024 9:41 AM EST 09/13/2024 11:31 AM EST us Nick Johnson MD LAB BLOOD ORDERABLES Final Resul t Performing Organization Address City/[facility] Co de Phone Number [facility] [address] [place] [address] [phone] * (ABNORMAL) Lipid Panel, Standard (09/13/2024 9:41 AM EST) Triglycerides 95 <150 mg/dL [facility] Comment:Desirable Triglyceri de: less than 150 mg/dLBorderline High Triglyceride 150-199 mg/dLHigh Triglyceride: 200-499 mg/dLVery High Triglyceride: greater than or equal to 5OO mg/dL Cholesterol 101 <200 mg/dL [facility] Comment:Desirable Cholestero l: less than 200 mg/dLBorderline High Cholesterol: 200-239 mg/dLHigh Cholesterol: greater than 239 mg/dL LDL Cholesterol Calculated 46 <100 mg/dL [facility] Comment:Desirable LDL: less than 100 mg/dLNear Optimal/Above Optimal LDL: 110- 129 mg/dLBorderline High LDL: 130-159 mg/dLHigh LDL: 160-189 mg/dLVery High LDL: greater than or equal to 190 mg/dL HDL Cholesterol 36(L) >40 mg/dL [facility] Comment:Desirable HDL: great er than 40 mg/dL Note: This HDL assay may give artificially low results in patients with liver disease. Blood Venous blood specimen / Unknown 09/13/2024 9:41 AM EST 09/13/2024 12:06 PM EST us Nick Johnson MD LAB BLOOD ORDERABLES Final Resul t [facility] [address] [place] [address] [phone] * Comprehensive Metabolic Panel (09/13/2024 9:41 AM EST) Sodium 142 135 - 145 mmol/L [facility] Potassium 3.3 3.3 - 5.1 mmol/L [facility] Chloride 103 96 - 108 mmol/L [facility] Carbon Dioxide 26 22 - 29 mmol/L [facility] Anion Gap 16 12 - 20 [facility] Urea Nitrogen (BUN) 14 9 - 16 mg/dL [facility] Creatinine, Serum 0.91 0.5 - 1.4 mg/dL [facility] Estimated Glomerular Filt Rate >60 [facility] Comment:Chronic Kidney Disea se: Estimated GFR < 60 mL/min/1.86e8Fnarhp Kidney Disease: Estimated GFR < 15 mL/min/1.73m2 Glucose 96 60 - 115 mg/dL [facility] Calcium 9.4 8.4 - 10.2 mg/dL [facility] Bilirubin, Total 0.5 0.0 - 1.0 mg/dL [facility] Aspartate Amino Transferase 26 5 - 37 U/L [facility] Alanine Aminotransferase 15 0 - 40 U/L [facility] Total Protein 7.5 6.5 - 8.0 g/dL [facility] Albumin Level 4.3 3.5 - 5.0 g/dL [facility] Alkaline Phosphatase 73 39 - 117 U/L [facility] Blood Venous blood specimen / Unknown 09/13/2024 9:41 AM EST 09/13/2024 12:06 PM EST us Nick Johnson MD LAB BLOOD ORDERABLES Final Resul t Performing Organization Address City/[facility]/ZIP Co de Phone Number [facility] [address] [place] [address] [phone] * XR Chest 2 Views (09/12/2024 10:47 AM EST) Anatomical Region Laterality Modality Chest Radiographic Mariann ging 09/12/2024 10:4 7 AM EST Narrative 09/12/2024 11:05 AM EST ?[facility] ?[address] ?[place] [address] ?XRay Report ? Signed ? Patient: Iftikhar Wen ?MR#: [id number] ?? [id number] ? : 1955 ?Acct:[id number] ? Age/Sex: 68 / M ?ADM Date: 09/12/24 ? Loc: HO.HHCX ? Attending Dr: Nick Johnson MD ? Ordering Physician: Nick Johnson MD ?? Date of Service: 09/12/24 ?? Procedure(s): XR chest 2V ?? Accession Number(s): [id number] ? cc: Nick Johnson MD ? EXAMINATION: [...] DD/ 1047 ? TD/TT: 09/12/24 1055 ? Shotweld Operator: ? Procedure Note Renee Gold - 09/12/[address] [address] XRay Report Signed Patient: Iftikhar WenMR#: [id number] : 7Acct:[id number] Age/Sex: 68 / MADM Date: 09/12/24 Loc: HO.HHCX Attending Dr: Nick Johnson MD Ordering Physician: Nick Johnson MD Date of Service: 09/12/24 Procedure(s): XR chest 2V Accession Number(s): [id number] cc: Nick Johnson MD EXAMINATION: XR CHEST [...] 09/12/2024 11:02 AM EST RP Dictated By: Iorn Cook MD Signed By: <Electronically signed by Iron Cook MD in OV> 09/12/24 1102 DD/ 1047 TD/TT: 09/12/24 1055 Shotweld Operator: Nick Johnson MD IMG XR PROCEDURES Final Result * ECG 12 lead (09/12/2024 10:36 AM EST) Narrative NameNick MD - 09/12/2024 10:36 AM EST Sinus tachycardia. ??Heart rate of 105. ??No other abnormality. us Nick Johnson MD ECG ORDERABLES Final Result * POCT HGB A1C (09/12/2024 10:12 AM EST) Hemoglobin A1C 5.3 4.0 - 6.0 % QC Media Lot # [id number] Lot# Expiration Date [id number] Blood 09/12/2024 10:1 2 AM EST us Nick Johnsno MD POINT OF CARE TEST ENTER/EDIT OR DERABLES Final Result * POCT Glucose (09/12/2024 10:11 AM EST) Glucose Blood, POC 159 60 - 200 mg/dL QC Media Lot # [id number] Lot# Expiration Date [id number] Blood Capillary blood specimen / Unknown 09/12/2024 10:11 AM EST us Nick Johnson MD POINT OF CARE TEST ENTER/EDIT OR DERABLES Final Result * Cologuard?? colon cancer screening (09/12/2023 4:00 PM EST) Cologuard Result Negative Negative 09/21/19 24 1:01 PM EST [facility] (CLIA #:[id number]) Comment: NEGATIVE TEST RESULT. A negative Cologuard [...] cancer. ??Following a negative Cologuard result, the [place] [employer] and U.S. Multi-Society Task Force screening guidelines recommend a Cologuard re-screening interval of 3 years. References: [place] [employer] Guideline for Colorectal Cancer Screening: https://www.cancer.org/cancer/zgpft-mvbpjd-uzsvjp/ykgnrqvra-gxpiyrwcp-xotygkk/ac s-rec ommendations.html.; Glenn SCHUMACHER, Shreya COLINDRES, Sierra PUGH, Colorectal Cancer Screening: Recommendations for Physicians and Patients from the U.S. Multi-Society Task Force on Colorectal Cancer Screening , Am J Gastroenterology 2017; 112:9350-0285. TEST DESCRIPTION: Composite algorithmic analysis of stool [...] screened with both Cologuard and colonoscopy. (Charly Hudson al, N Engl J Med 2014;370(14):6008-5151.) Cologuard may produce a false negative or false positive result (no colorectal cancer or precancerous polyp present at colonoscopy follow up). A negative Cologuard test result does not guarantee the absence of CRC or advanced adenoma (pre-cancer). The current Cologuard screening interval is every 3 years. ([place] [employer] and U.S. Multi-Society Task Force). Cologuard performance data in a 10,000 patient pivotal study using colonoscopy as the reference method can be accessed at the following location: www.[employer]/results. Additional description of the Cologuard test process, warnings and precautions can be found at www.[employer].com. Stool specimen (specimen) Rectal contents / Unknown 09/12/2023 4:00 PM EST 09/14/2023 11:13 AM EST us Nick [facility] ORDERA BLEVeda Final Result [facility] (CLIA #:[id number]) [address] [place] [address], * Hepatitis C Antibody with Reflex to HCV, RNA, Quantitative, Real-Time PCR (08/22/2023 10:46 AM EST) Hepatitis C Antibody Nonreactive Nonreactive [facility] Comment:Antibodies to HCV no t detected; does not exclude early acuteHCV infection. Blood Venous blood specimen / Unknown 08/22/2023 10:46 AM EST 08/22/2023 11:23 AM EST us Nick Name LAB BLOOD ORDERABLES Final Resul t [facility] [address] [place] [address] [phone] from Last 3 Months or Most Recently Relevant to Health Maintenance Insurance MEDICARE [facility] [address] Care Teams Fugitive Detective Relationship Specialty Start Date End Date Name, MD Nick [address] [place] [phone] PCP - General Family Medicine 10/14/15
--- OUTSIDE RECORDS SUMMARY | 2024-12-05 16:08 | XMS_ITS | Encounter Summary ---
Author Organization [employer] Address [address] [facility] [address] [place] [address] Care Team Providers Care Plant Electrical Engineer Name Role Phone Name, Nick BOWENS Primary Care Provider [phone] Encounter Details Date Type Department Care Team (Latest Contact Info) Description 10/13/2021 Abstract [facility] CONVERSIONS Dental, Provider, DDS Social History Tobacco [...] Upcoming Encounters Date Type Department Care Team ( st Contact Info) Description 12/14/2024 10:00 AM EDT Office Visit [facility] MEDICINE [address] [place] [address] Name, MD Nick [address] [place] [address] documented as of this encounter Visit Diagnoses Not on filedocumented in this encounter Care Teams Plant Electrical Engineer Relationship Specialty Start Date End Date Name, MD Nick [address] [place] [address] PCP - General Family Medicine 10/14/15 documented as of this encounter
== END 2024-12-05 16:04 | disposition home or self-care (01) ==
LOC: HO.CT 16:03
PROVIDERS: Visit Provider Physician Assistant Medical
DX: Z12.2 Encounter for screening for malignant neoplasm of respiratory organs (principal); F17.210 Nicotine dependence, cigarettes, uncomplicated
CPT/HCPCS: 71271

== ENCOUNTER → 2024-12-05 16:06 | Outpatient (BNV) | payer MEDICARE, SELFPAY | PROVIDERS: Visit Provider Radiology Diagnostic Radiology | DX: F17.210 Nicotine dependence, cigarettes, uncomplicated (principal) | CPT/HCPCS: 71271 ==